=== PATIENT | female | born 1930 | race Caucasian/White ===

== ENCOUNTER → 2016-08-14 | Outpatient (CLI) | payer OTHER ==
[~2016-08-14] VITALS: Ht 167.6 cm; Wt 71.1 kg
[~2016-08-14] MED LIST: ALEVE220 MG PO; ALIGN4 MG; AMITIZA8 MCG PO; BENTYL 10 MG CA10 M1 PO; CARAFATE 1 GM TA1 G1 PO; CELEBREX100 MG/1 C PO; CENTRUM SILVER1 EAC4; CYMBALTA30 MG PO; FLUTICASONE PRO16 GM NS; GABAPENTIN 100100 MG PO; GLUCOSAMINE CH1 EAC2; LEVOTHYROXIN0.075 MG PO; LEVOXYL88 MCG PO; METAMUCIL PAC1 UDPKT; NEURONTIN 300300 M1 PO; PERCOCET PO; PRILOSEC 20 MG20 MG PO; RIZATRIPTAN10 MG PO; TRAMADOL 50 MG50 MG PO; VALTREX 500 MG500 M1 PO; XANAX 0.5 MG0.5 MG PO; ZANAFLEX4 MG PO; [UNRECOGNIZED DRUG - OTHER]
--- NOTE | ~2016-08-14 | HPC ---
[facility] [place] [address] PAIN MANAGEMENT CONSULTATION Name: ARTHUR OSMAN Room #: REG ZBIGNIEW Roland.#: [id number] Admission: 08/14/16 Attend Phys: Mitesh Sims DO Discharge: Date of : 30 Report #: [id number] THIS REPORT FOR: //name// CC: Ivonne Sims The patient is a very pleasant 85-year-old female being treated for lumbar radiculopathy status post decompressive laminectomy with fairly significant pain. She has had reasonable improvement with a left L2-L3 transforaminal epidural injection in April. I repeated that injection 07/03/2016 with little less efficacy. She notes pain remains problematic, but it is more in the posterior aspect of the left leg. She has been taking some Percocet rarely, 5 mg of quarter tablet p.r.n. She has a followup appointment with her primary treating physician in about 2 weeks, but she is out of the Percocet. I have taken the liberty of renewing this prescription. Physical exam is relatively unchanged. An 85-year-old female, BMI is 25.3 kilograms per meter squared. Vital signs stable as noted in the EMR. Rises from chair using armrests. Antalgic gait, positive straight leg raise on the left with decreased left hip flexion, lower extremity extension strength. ASSESSMENT: Symptomatic lumbar radiculopathy, status post lumbar decompressive laminectomy. RECOMMENDATIONS: Left L4-L5 transforaminal epidural injection today. Trying to get a lower approach to cover more of that L4-L5 distribution pain (sciatic type symptoms). We did again review her MRI, which notes fairly significant posterior decompression at L4 and L5. There is fairly significant stenosis at L3-L4 and L2-L3, L3-L4 is down to 0.68 cm and L2-L3 is even narrow at 0.54 cm. PROCEDURE: Left L4-L5 transforaminal epidural injection under fluoroscopy. PROCEDURE: Transforaminal lumbar epidural injection under fluoroscopy. PROCEDURE NOTE: After both written and informed consent was obtained including risk of spinal cord damage, infection, increased pain and paralysis, the patient agreed to proceed. The patient was taken to the fluoroscopy suite, placed in a prone position with appropriate abdominal bolstering. After sterile prep with ChloraPrep and sterile drape, a skin wheal with 1% Xylocaine was raised. A 22 gauge 4-1/2 inch epidural Tuohy needle was inserted. From an oblique approach into the posterior-superior aspect of the left L4-L5 neural foramen with continuous pressure on the glass syringe plunger for loss of resistance. Glass syringe was filled with 2 cc of 0.1 Xylocaine. The glass loss of resistance syringe was removed. A low volume extension tubing was connected, negative aspiration was accomplished for cerebrospinal fluid or blood. 1 mL of Omnipaque was injected which showed spread both within the epidural space and laterally along the nerve root. This was followed with 80 mg of triamcinolone plus [address] [address] PAIN MANAGEMENT CONSULTATION Name: ARTHUR OSMAN Room #: TREE Nicolas#: [id number] Admission: 08/14/16 Attend Phys: Mitesh Sims DO Discharge: Date of : 30 Report #: [id number] of 1.5% preservative-free Xylocaine. Needle was partially withdrawn, 0.5 mL of Xylocaine was injected to clear the needle and the needle was removed. The area was cleansed, band-aid was applied. The patient was allowed to ambulate to the recovery room, discharged in good and stable condition. Level is L4-L5 on the left. Followup is as needed. <ELECTRONICALLY SIGNED> By: Mitesh Sims DO 08/18/16 1228 1553 0158 Mitesh Sims DO /nt
[2016-08-14 12:56] VITALS: BP 114/73
== END | disposition home or self-care (01) ==
LOC: PAIN 07-28 06:45
DX: M54.16 Radiculopathy, lumbar region (principal); Z98.890 Other specified postprocedural states

== ENCOUNTER 2016-12-29 22:18 | Emergency (ER) | payer OTHER ==
[~2016-12-29] VITALS: Ht 167.6 cm; Wt 71.2 kg
== END 2016-12-30 01:06 | disposition home or self-care (01) ==
LOC: ER 22:18
DX: S90.512A Abrasion, left ankle, initial encounter (principal); S50.811A Abrasion of right forearm, initial encounter; Z96.651 Presence of right artificial knee joint; Z85.828 Personal history of other malignant neoplasm of skin; Z88.8 Allergy status to other drugs, medicaments and biological substances; Z88.0 Allergy status to penicillin; Z88.5 Allergy status to narcotic agent; Z88.6 Allergy status to analgesic agent; W18.12XA Fall from or off toilet with subsequent striking against object, initial encounter; Y93.89 Activity, other specified; Y92.091 Bathroom in other non-institutional residence as the place of occurrence of the external cause; Y99.8 Other external cause status

== ENCOUNTER 2016-12-31 11:08 | Emergency (ER) | payer OTHER ==
[~2016-12-31] VITALS: Ht 167.6 cm; Wt 71.2 kg
[2016-12-31 12:50] LABS: ABSOLUTE NEUTROPHILS 3.8 thou/uL (1.4-8.2); BASOPHILS 1.1 % (0.0-2.0); EOSINOPHILS 0.9 % (0.0-3.0); HEMATOCRIT 40.5 % (37.0-47.0); HEMOGLOBIN 13.9 gm/dL (12.0-15.0); LYMPHOCYTES 32.6 % (24.0-44.0); MCH 31.6 pg (26.0-34.0); MCHC 34.4 g/dL (28.0-37.0); MONOCYTES 11.1 % (1.0-8.0); PLATELET COUNT 212 thou/uL (150-400); POLYS 54.3 % (36.0-66.0); RDW 12.9 % (10.5-14.5); WBC 7.1 thou/uL (4.0-11.0)
[2016-12-31 12:51] LABS: MANUAL DIFF NO
[2016-12-31 13:01] LABS: URINE BILIRUBIN NEGATIVE (Negative); URINE BLOOD NEGATIVE (Negative); URINE COLOR YELLOW; URINE GLUCOSE-RANDOM* NEGATIVE (Negative); URINE KETONES NEGATIVE (Negative); URINE LEUKOCYTES-REFLEX NEGATIVE (Negative); URINE PROTEIN (DIPSTICK) NEGATIVE (Negative); URINE SPECIFIC GRAVITY <= 1.005 (1.003-1.035); URINE UROBILINOGEN 0.2 E.U./dl (0.2-1.0)
[2016-12-31 13:03] LABS: CALCIUM 10.2 mg/dL (8.5-10.1); CREATININE 1.3 mg/dL (0.6-1.0); POTASSIUM 4.2 mmol/L (3.5-5.1)
== END 2016-12-31 15:27 | disposition home or self-care (01) ==
LOC: ER 11:08
PROVIDERS: Nurse Practitioner Family
DX: R11.2 Nausea with vomiting, unspecified (principal); Z98.890 Other specified postprocedural states; Z90.49 Acquired absence of other specified parts of digestive tract; Z96.651 Presence of right artificial knee joint; Z91.048 Other nonmedicinal substance allergy status; Z88.0 Allergy status to penicillin; Z88.5 Allergy status to narcotic agent; Z88.6 Allergy status to analgesic agent; Z88.8 Allergy status to other drugs, medicaments and biological substances

== ENCOUNTER 2017-02-17 14:43 | Emergency (ER) | payer OTHER ==
[~2017-02-17] VITALS: Ht 167.6 cm; Wt 71.2 kg
[2017-02-17 15:09] LABS: ABSOLUTE NEUTROPHILS 4.9 thou/uL (1.4-8.2); BASOPHILS 0.7 % (0.0-2.0); EOSINOPHILS 0.6 % (0.0-3.0); HEMATOCRIT 40.7 % (37.0-47.0); HEMOGLOBIN 13.9 gm/dL (12.0-15.0); LYMPHOCYTES 37.3 % (24.0-44.0); MCH 31.8 pg (26.0-34.0); MCHC 34.3 g/dL (28.0-37.0); MCV 92.8 fL (80.0-100.0); MONOCYTES 10.2 % (1.0-8.0); PLATELET COUNT 203 thou/uL (150-400); POLYS 51.2 % (36.0-66.0); RBC 4.39 mil/uL (4.20-5.00); WBC 9.6 thou/uL (4.0-11.0)
[2017-02-17 15:12] LABS: MANUAL DIFF NO
[2017-02-17 15:18] LABS: CALCIUM 9.4 mg/dL (8.5-10.1); CREATININE 1.1 mg/dL (0.6-1.0); POTASSIUM 3.4 mmol/L (3.5-5.1)
[2017-02-17 15:24] LABS: ALBUMIN 3.7 g/dL (3.4-5.0); TOTAL BILIRUBIN 0.6 mg/dL (<0.1-1.0)
[2017-02-17 16:10] LABS: URINE BILIRUBIN NEGATIVE (Negative); URINE BLOOD NEGATIVE (Negative); URINE COLOR YELLOW; URINE GLUCOSE-RANDOM* NEGATIVE (Negative); URINE KETONES NEGATIVE (Negative); URINE NITRITE NEGATIVE (Negative); URINE PROTEIN (DIPSTICK) NEGATIVE (Negative); URINE SPECIFIC GRAVITY <= 1.005 (1.003-1.035); URINE UROBILINOGEN 0.2 E.U./dl (0.2-1.0)
[2017-02-17 16:26] LABS: BACTERIA 1-9 Few /HPF (None Seen); CASTS None Seen /LPF (None Seen); CRYSTALS None Seen /LPF (None Seen); SQUAMOUS 0-3 Few /LPF (0-3); URINE RBC 0-2 Rare /HPF (0-2); WBC CLUMPS Few (None Seen)
[2017-02-17] MEDS ORDERED: BACTRIM DS TAB1 EACH PO (16:48)
== END 2017-02-17 17:15 | disposition home or self-care (01) ==
LOC: ER 14:43
PROVIDERS: Physician Assistant
DX: N39.0 Urinary tract infection, site not specified (principal); R41.82 Altered mental status, unspecified; Z98.890 Other specified postprocedural states; Z88.5 Allergy status to narcotic agent; Z91.018 Allergy to other foods; Z88.0 Allergy status to penicillin; Z88.8 Allergy status to other drugs, medicaments and biological substances; Z91.09 Other allergy status, other than to drugs and biological substances

== ENCOUNTER → 2017-03-20 | Outpatient (CLI) | payer OTHER ==
[~2017-03-20] VITALS: Ht 167.6 cm; Wt 72.1 kg
[~2017-03-20] MED LIST changes: +BACTRIM DS TAB1 EACH PO; +CYMBALTA60 MG PO
--- NOTE | ~2017-03-20 | HPC ---
[facility] [place] [address] PAIN MANAGEMENT CONSULTATION Name: ARTHUR OSMAN Room #: REG ZBIGNIEW Nicolas#: [id number] Admission: 03/20/17 Attend Phys: Mitesh Sims DO Discharge: Date of : 30 Report #: [id number] THIS REPORT FOR: //name// CC: DIANA Sims HISTORY OF PRESENT ILLNESS: The patient is an 86-year-old female, prior seen in the pain clinic on 08/25/2016. She is status post lumbar decompressive laminectomy and is having neuropathic pain with left lower extremity pain. The patient had had 3 lumbar epidural injections, 04/21/2016, 07/03/2016, 08/14/2016. In August, she was having some ongoing symptoms, albeit had had subjective improvement from prior injections, noting 50% at least ongoing. She was, however, still having some stocking paresthesia in the left leg with burning dysesthesia. She returns to the pain clinic today, I had ordered an EMG of the left lower extremity, ultimately this was accomplished on 09/26/2016. I reviewed the findings with the patient today. Neorologist notes severe left perineural neuropathy possibly mid leg, bilateral radicular abnormalities consistent with spinal stenosis. The patient notes subsequent to her L4-L5 laminectomy now some 18 years ago (1998), she has had ongoing low back, left buttock, leg pain with burning in her left ankle. She rates her pain up to an 8 on VAS presently. Does take some tramadol p.r.n. PHYSICAL EXAMINATION: Shows an 86-year-old female, BMI is 25.7 kilograms per meter squared. Vital signs are stable as noted in the EMR. Rises from chair using armrest, nominally antalgic gait, but grossly positive straight leg raise at 30 degrees on the left, slight decreased left lower extremity extension, strength and plantar flexion. We did review MRI from 04/11/2017 approximately 1 year ago, again does note a grade 1 anterolisthesis of L4 on L5 as well as L3-L4. Prior laminectomy changes at L4-L5 and L5-S1. Extensive spondylosis with subluxation, spinal stenosis noted at multiple levels, L1-L2 and L2-L3 are significant. Canal narrowing at L3-L4 with prominent central right disk at L3-L4, again has contralateral to primary radicular symptoms. ASSESSMENT: Symptomatic lumbar radiculopathy by clinical exam, left L4 pattern. RECOMMENDATIONS: Discussion with the patient today about therapeutic option. After reviewing diagnostic studies including MRI and more recent EMG, we have elected to proceed with left L4-L5 transforaminal epidural injection today, requiring opiate analgesic I did take the liberty of renewing tramadol 50 mg 1 tablet 2-3 times a day, limit 60 tablets with [address] [address] PAIN MANAGEMENT CONSULTATION Name: ARTHUR OSMANYCE Room #: REG [facility]..#: [id number] Admission: 03/20/17 Attend Phys: Mitesh Sims DO Discharge: Date of : 30 Report #: [id number] Follow simply on an as needed basis. Continue exercise, range of motion and strength treating for left lower extremity. ASSESSMENT: 1. Symptomatic lumbar radiculopathy, neuropathic pain component, status post lumbar decompressive laminectomy requiring complex medication management. Medications as noted above. 2. Left L4-L5 transforaminal epidural injection under fluoroscopy. PROCEDURE: Transforaminal lumbar epidural injection under fluoroscopy. PROCEDURE NOTE: After both written and informed consent was obtained including risk of spinal cord damage, infection, increased pain and paralysis, the patient agreed to proceed. The patient was taken to the fluoroscopy suite, placed in a prone position with appropriate abdominal bolstering. After sterile prep with ChloraPrep and sterile drape, a skin wheal with 1% Xylocaine was raised. A 22 gauge 4-1/2 inch epidural Tuohy needle was inserted. From an oblique approach into the posterior-superior aspect of the left L4-L5 neural foramen with continuous pressure on the glass syringe plunger for loss of resistance. Glass syringe was filled with 2 cc of 0.1 Xylocaine. The glass loss of resistance syringe was removed. A low volume extension tubing was connected, negative aspiration was accomplished for cerebrospinal fluid or blood. 1 mL of Omnipaque was injected which showed spread both within the epidural space and laterally along the nerve root. This was followed with 80 mg of triamcinolone plus 1 mL of 1.5% preservative-free Xylocaine. Needle was partially withdrawn, 0.5 mL of Xylocaine was injected to clear the needle and the needle was removed. The area was cleansed, band-aid was applied. The patient was allowed to ambulate to the recovery room, discharged in good and stable condition. <ELECTRONICALLY SIGNED> By: Mitesh Sims DO 03/26/17 0847 1211 193 Mitesh Sims DO /nt
[2017-03-20 10:23] VITALS: BP 130/75
== END | disposition home or self-care (01) ==
LOC: PAIN 09:00
DX: M54.16 Radiculopathy, lumbar region (principal); G62.9 Polyneuropathy, unspecified

== ENCOUNTER → 2017-04-17 | Outpatient (CLI) | payer OTHER ==
[~2017-04-17] VITALS: Ht 167.6 cm; Wt 70.3 kg
--- NOTE | ~2017-04-17 | HPC ---
[facility] [place] [address] PAIN MANAGEMENT CONSULTATION Name: ARTHUR OSMAN Room #: REG [facility] [place].#: [id number] Admission: 04/17/17 Attend Phys: Mitesh Sims DO Discharge: Date of : 30 Report #: [id number] THIS REPORT FOR: //name// CC: DIANA Sims HISTORY OF PRESENT ILLNESS: The patient is a very pleasant 86-year-old female, we have been treating for some time for chronic back pain status post decompressive laminectomy and neuropathic pain, primarily involving left lower extremity. She has done well with occasional epidural injections, had 3 injections, 04/21/2016, 07/03/2016 and 08/14/2016. Last visit, 03/20/2017, we proceeded with a left L4-L5 transforaminal epidural injection. She returns to pain clinic today noting that the radicular pain is significantly improved; she does, however, have ongoing pain in the left hip, which is a little bit different. She notes the pain is in the lateral aspect of the hip, exacerbated with standing and weightbearing. She rates it as 6 on a VAS. PHYSICAL EXAMINATION: Shows an 86-year-old female, BMI is 25 kilograms per meter squared, blood pressure is modestly elevated 137/97, pulse wnl, respirations are 12. She is alert and oriented to person, place and time, judged to be a reasonable historian. Rises from chair using armrest. Modestly antalgic gait favoring that left leg. Passive rotation of the left hip does not exacerbate pain. Active resistance to abduction does exacerbate pain at the trochanteric bursa; point tenderness over this area also confirms pain. Does not have significant pain over the SI joints and BRIAN test is equivocal. Lower extremity strength, however, appears preserved. Straight leg raise is negative. ASSESSMENT: 1. Symptomatic lumbar radiculopathy status post decompressive laminectomy and neuropathic pain, relatively stable after epidural injection at last visit. 2. New diagnosis of left trochanteric bursitis, possible component of left hip degenerative joint disease. RECOMMENDATION: 1. Continue tramadol p.r.n., does not require prescription for same. 2. Left trochanteric bursa injection today, follow up in 1 week for consideration for left hip joint injection under fluoroscopy if indicated. PROCEDURE: Left trochanteric bursa injection. PROCEDURE NOTE: After written informed consent was obtained, the patient was placed in the right lateral decubitus position. Skin overlying the left trochanteric bursa was cleansed with alcohol. Skin wheal with Xylocaine was raised. A 22-gauge stylet needle was placed to contact the superior and lateral aspect of the left femur over the trochanteric bursa. Needle was withdrawn approximately 1-2 mm. Negative aspiration was accomplished, 40 mg triamcinolone plus 2 mL of 0.5% preservative-free bupivacaine was injected into and around the [address] [address] PAIN MANAGEMENT CONSULTATION Name: ARTHUR OSMAN Room #: REG Trev Nicolas#: [id number] Admission: 04/17/17 Attend Phys: Mitesh Sims DO Discharge: Date of : 30 Report #: [id number] trochanteric bursa. Needle was removed. The area was cleansed, Band-Aids applied. The patient monitored for an appropriate period of time, discharged in good and stable condition. <ELECTRONICALLY SIGNED> By: Mitesh Sims DO 04/20/17 1014 1543 1245 Mitesh Sims DO /nt
[2017-04-17 10:49] VITALS: BP 137/97
== END | disposition home or self-care (01) ==
LOC: PAIN 07:17
DX: M70.62 Trochanteric bursitis, left hip (principal); M54.16 Radiculopathy, lumbar region; G89.29 Other chronic pain; F41.8 Other specified anxiety disorders; G43.909 Migraine, unspecified, not intractable, without status migrainosus; Z88.0 Allergy status to penicillin; Z98.890 Other specified postprocedural states; Z88.6 Allergy status to analgesic agent; Z91.040 Latex allergy status; Z79.899 Other long term (current) drug therapy

== ENCOUNTER → 2017-06-22 | Outpatient (CLI) | payer OTHER ==
[~2017-06-22] VITALS: Ht 167.6 cm; Wt 71.2 kg
[~2017-06-22] MED LIST changes: +AMITRIPTYLINE H25 M2 PO
--- NOTE | ~2017-06-22 | HPC ---
[facility] [address] [place] [address] PAIN MANAGEMENT CONSULTATION Name: ARTHUR OSMANYCE Room #: REG ZBIGNIEW Nicolas#: [id number] Admission: 06/22/17 Attend Phys: Mitesh Sims DO Discharge: Date of : 30 Report #: [id number] THIS REPORT FOR: //name// CC: DIANA Sims The patient is an 86-year-old female, long known to the pain clinic, being treated for lumbar radiculopathy status post a fairly extensive decompressive laminectomy L4 and L5; axial back pain, neuropathic pain in the left lower extremity requiring high risk complex medication management, comorbidity includes a component of left hip DJD and SI mediated pain. Last visit 04/17/2017, I did a left trochanteric bursa injection with only nominal improvement of pain. She actually has more radicular pain at this point down the lateral aspect of that left leg down to the foot. Pain is exacerbated with standing, walking and bending. PHYSICAL EXAMINATION: Shows a pleasant 86-year-old female. She does have a fair bit of ecchymosis in the lower extremities, which the patient notes seems to be getting worse. She does not take any blood thinners, she really does not take any steroids. Suggest she follow up with oncologist if needed for further evaluation of bilateral lower extremity ecchymosis. Otherwise, vital signs are stable, subjective pain score is 9 on a VAS. Rises from chair using armrest. Antalgic gait favoring the left leg. Positive straight leg raise on the left. Again, ecchymosis noted bilaterally in lower extremities. We reviewed the EMG from 09/26/2016, noting severe left peroneal neuropathy, bilateral radicular abnormalities consistent with spinal stenosis. No evidence of peripheral neuropathy. ASSESSMENT: Symptomatic lumbar radiculopathy status decompressive laminectomy. RECOMMENDATIONS: 1. Left L4-L5 transforaminal epidural injection today. 2. Follow up with DELVIN Cedeño, care of Dr. García's office for consideration for referral to hematology/oncology regarding evaluation for ongoing ecchymosis of the lower extremity without obvious etiology. PROCEDURE: Left L4-L5 transforaminal epidural injection under fluoroscopy. PROCEDURE NOTE: After both written and informed consent was obtained including risk of spinal cord damage, infection, increased pain and paralysis, the patient agreed to proceed. The patient was taken to the fluoroscopy suite, placed in a prone position with appropriate abdominal bolstering. After sterile prep with ChloraPrep and sterile drape, a skin wheal with 1% Xylocaine was raised. A 22 gauge 4-1/2 inch epidural Tuohy needle was inserted[place] [address] PAIN MANAGEMENT CONSULTATION Name: ARTHUR OSMAN Room #: REG ZBIGNIEW Nicolas#: [id number] Admission: 06/22/17 Attend Phys: Mitesh Sims DO Discharge: Date of : 30 Report #: [id number] into the posterior-superior aspect of the left L4-L5 neural foramen with continuous pressure on the glass syringe plunger for loss of resistance. Glass syringe was filled with 2 cc of 0.1 Xylocaine. The glass loss of resistance syringe was removed. A low volume extension tubing was connected, negative aspiration was accomplished for cerebrospinal fluid or blood. 1 mL of Omnipaque was injected which showed spread both within the epidural space and laterally along the nerve root. This was followed with 80 mg of triamcinolone plus 1 mL of 1.5% preservative-free Xylocaine. Needle was partially withdrawn, 0.5 mL of Xylocaine was injected to clear the needle and the needle was removed. The area was cleansed, band-aid was applied. The patient was allowed to ambulate to the recovery room, discharged in good and stable condition. <ELECTRONICALLY SIGNED> By: Mitesh Sims DO 06/24/17 0834 1214 1550 Mitesh Sims DO /nt
[2017-06-22 10:48] VITALS: BP 152/62
== END | disposition home or self-care (01) ==
LOC: PAIN 04-24 07:18
DX: M54.16 Radiculopathy, lumbar region (principal); G89.29 Other chronic pain; M16.12 Unilateral primary osteoarthritis, left hip; M53.3 Sacrococcygeal disorders, not elsewhere classified; Z79.891 Long term (current) use of opiate analgesic; Z79.899 Other long term (current) drug therapy; Z88.0 Allergy status to penicillin; Z88.6 Allergy status to analgesic agent; Z88.8 Allergy status to other drugs, medicaments and biological substances; Z87.440 Personal history of urinary (tract) infections; Z98.890 Other specified postprocedural states

== ENCOUNTER 2017-07-22 14:17 | Inpatient (IN) | payer OTHER ==
[~2017-07-22] VITALS: Ht 167.6 cm; Wt 68.9 kg
--- NOTE | ~2017-07-22 | EKG ---
[place] [address] [facility] [place] [address] ELECTROCARDIOGRAM REPORT Name: DAWSONARTHUR BRANDI Room #: [facility] [id number] Admission: 07/22/17 Attend Phys: Discharge: Date of : 30 Report #: [id number] THIS REPORT FOR: //name// [facility] ED Test Date: 2017-07-22 Test Time: 16:18:54 Pat Name: ARTHUR OSMAN Department: Room: Gender: F Automotive Vehicle Inspector: YADY : 1930 Requested By: Papito Avelar Order Number: [id number] MD: George Rob Measurements Intervals [place] Rate: 84 P: 29 WI: 179 QRS: -42 QRSD: 100 T: 50 QT: 381 QTc: 451 Interpretive Statements Sinus rhythm LAD, consider LAFB or inferior infarct Left ventricular hypertrophy Anterior infarct, old Compared to ECG 05/06/2016 23:05:13 No significant changes Electronically Signed On 07-22-2017 16:21:57 [employer] by George Rob [email or web address] <ELECTRONICALLY SIGNED> By: George Rob MD 07/22/17 1621 1618 1618 George Rob MD /BENJI
[2017-07-22 14:19] VITALS: BP 126/70
[2017-07-22] MEDS ORDERED: LEVOXYL75 MCG PO (15:43)
[2017-07-22] MEDS ORDERED: GABAPENTIN 100100 MG PO (15:45)
[2017-07-22 16:12] LABS: HEMOGLOBIN 13.5 gm/dL (12.0-15.0); MCH 33.7 pg (26.0-34.0); MCHC 35.5 g/dL (28.0-37.0); RDW 12.6 % (10.5-14.5); WBC 12.9 thou/uL (4.0-11.0)
[2017-07-22 17:06] LABS: BUN 16 mg/dL (7-18); CALCIUM 9.3 mg/dL (8.5-10.1); CO2 28 mmol/L (21-32); CREATININE 1.1 mg/dL (0.6-1.0); GLUCOSE 123 mg/dL (74-106); MAGNESIUM 1.9 mg/dL (1.8-2.4); SGOT 27 U/L (15-37); SGPT 33 U/L (30-65); TOTAL BILIRUBIN 0.5 mg/dL (<0.1-1.0); TROPONIN-I < 0.04 ng/mL (<0.06)
[2017-07-22 17:10] LABS: ANION GAP 9 mmol/L (7-16); CHLORIDE 95 mmol/L (98-107); POTASSIUM 3.2 mmol/L (3.5-5.1); SODIUM 132 mmol/L (136-145)
[2017-07-22 18:39] LABS: URINE BILIRUBIN NEGATIVE (Negative); URINE BLOOD TRACE (Negative); URINE CLARITY CLEAR; URINE COLOR YELLOW; URINE GLUCOSE-RANDOM* NEGATIVE (Negative); URINE KETONES 2+ (Negative); URINE PROTEIN (DIPSTICK) 1+ (Negative); URINE SPECIFIC GRAVITY 1.025 (1.005-1.035); URINE UROBILINOGEN 0.2 E.U./dl (0.2-1.0)
[2017-07-22 18:48] LABS: URINE LEUKOCYTES-REFLEX 2+ (Negative); URINE NITRITE-REFLEX POSITIVE (Negative)
[2017-07-22 18:50] LABS: SQUAMOUS 0-3 Few /LPF (0-3)
[2017-07-22 18:51] LABS: BACTERIA-REFLEX 1-9 Few /HPF (None Seen); CRYSTALS None Seen /LPF (None Seen); URINE RBC None Seen /HPF (0-2); URINE WBC-REFLEX >25 Many /HPF (0-5)
[2017-07-22 21:12] VITALS: BP 182/74
[2017-07-23 07:45] LABS: HEMATOCRIT 36.8 % (37.0-47.0); HEMOGLOBIN 12.7 gm/dL (12.0-15.0); MCH 32.5 pg (26.0-34.0); MCHC 34.6 g/dL (28.0-37.0); MCV 93.9 fL (80.0-100.0); RBC 3.92 mil/uL (4.20-5.00); RDW 12.6 % (10.5-14.5); WBC 12.3 thou/uL (4.0-11.0)
[2017-07-23 07:53] LABS: CREATININE 0.9 mg/dL (0.6-1.0); POTASSIUM 3.9 mmol/L (3.5-5.1)
[2017-07-23 08:00] VITALS: BP 139/67
[2017-07-23 19:52] VITALS: BP 98/57
[2017-07-24 03:34] LABS: HEMATOCRIT 34.8 % (37.0-47.0); MCH 32.9 pg (26.0-34.0); MCHC 34.3 g/dL (28.0-37.0); MCV 95.8 fL (80.0-100.0); RBC 3.64 mil/uL (4.20-5.00); RDW 12.9 % (10.5-14.5); WBC 11.1 thou/uL (4.0-11.0)
[2017-07-24 04:14] LABS: CALCIUM 8.8 mg/dL (8.5-10.1); MAGNESIUM 1.8 mg/dL (1.8-2.4); POTASSIUM 3.6 mmol/L (3.5-5.1)
[2017-07-24 06:01] VITALS: BP 138/68
[2017-07-24 07:25] VITALS: BP 144/75
[2017-07-24 16:00] VITALS: BP 128/73
[2017-07-24 19:59] VITALS: BP 128/83
[2017-07-25 04:09] VITALS: BP 134/71
[2017-07-25 07:30] VITALS: BP 143/74
[2017-07-25 15:40] VITALS: BP 123/69
[2017-07-25 19:29] VITALS: BP 132/65
[2017-07-26 03:45] VITALS: BP 144/72
[2017-07-26 04:29] VITALS: BP 162/72
[2017-07-26 07:35] VITALS: BP 146/72
[2017-07-26 15:20] VITALS: BP 116/60
[2017-07-26 19:47] VITALS: BP 129/63
[2017-07-27 04:30] VITALS: BP 151/87
[2017-07-27 05:18] LABS: ABSOLUTE NEUTROPHILS 6.3 thou/uL (1.4-8.2); BASOPHILS 0.3 % (0.0-2.0); HEMATOCRIT 33.3 % (37.0-47.0); HEMOGLOBIN 11.4 gm/dL (12.0-15.0); LYMPHOCYTES 20.2 % (24.0-44.0); MCH 32.6 pg (26.0-34.0); MCHC 34.3 g/dL (28.0-37.0); MCV 95.2 fL (80.0-100.0); MONOCYTES 11.6 % (1.0-8.0); PLATELET COUNT 269 thou/uL (150-400); POLYS 66.9 % (36.0-66.0); RBC 3.49 mil/uL (4.20-5.00); RDW 12.8 % (10.5-14.5); WBC 9.5 thou/uL (4.0-11.0)
[2017-07-27 05:26] LABS: CALCIUM 8.6 mg/dL (8.5-10.1); CREATININE 0.8 mg/dL (0.6-1.0); POTASSIUM 3.3 mmol/L (3.5-5.1)
[2017-07-27 08:54] VITALS: BP 140/85
[2017-07-27 12:21] VITALS: BP 140/85
[2017-07-27] MEDS ORDERED: CIPRO500 MG PO (13:18)
[2017-11-10] MEDS ORDERED: HYDROCODONE-AP1 EAC6 PO (09:14)
[2017-11-10] MEDS ORDERED: XARELTO10 MG PO (09:14)
[2018-01-08] MEDS ORDERED: TYLENOL EXTRA500 MG PO (10:36)
[2018-01-08] MEDS ORDERED: GABAPENTIN 100100 MG PO (10:49)
[2018-04-07] MEDS ORDERED: NEURONTIN100 MG PO (10:58)
== END 2017-07-27 14:15 | disposition home health service (06) | DRG 871 ==
LOC: ER 14:17 → EROBS 19:14 → 4S 19:14 → EROBS 07-23 11:10 → 4S 07-23 14:49 → ENTRNSPT 07-27 13:51 → EDTRNSPTSTS 07-27 13:54 → 4S 07-27 14:15
PROVIDERS: Emergency Medicine; Family Medicine; Internal Medicine; Nurse Practitioner Family
DX: A41.9 Sepsis, unspecified organism (principal); G93.40 Encephalopathy, unspecified; N39.0 Urinary tract infection, site not specified; H60.92 Unspecified otitis externa, left ear; I95.1 Orthostatic hypotension; B96.5 Pseudomonas (aeruginosa) (mallei) (pseudomallei) as the cause of diseases classified elsewhere; E03.9 Hypothyroidism, unspecified; M25.512 Pain in left shoulder; F41.9 Anxiety disorder, unspecified; M79.7 Fibromyalgia; F32.9 Major depressive disorder, single episode, unspecified; G62.9 Polyneuropathy, unspecified; Z87.81 Personal history of (healed) traumatic fracture; Z79.899 Other long term (current) drug therapy; Z88.6 Allergy status to analgesic agent; Z88.5 Allergy status to narcotic agent; Z88.0 Allergy status to penicillin; Z88.2 Allergy status to sulfonamides; Z88.8 Allergy status to other drugs, medicaments and biological substances
CPT/HCPCS: 10100

== ENCOUNTER 2017-09-11 13:26 | Emergency (ER) | payer OTHER ==
[~2017-09-11] VITALS: Ht 167.6 cm; Wt 68.0 kg
[~2017-09-11 13:26] MED LIST changes: +CIPRO500 MG PO; +LEVOXYL75 MCG PO
[2017-09-11 13:28] VITALS: BP 186/66
[2017-09-11 16:21] LABS: ICTOTEST (BILI CONFIRMATORY) Negative (Negative); URINE BILIRUBIN NEGATIVE (Negative); URINE BLOOD NEGATIVE (Negative); URINE CLARITY CLEAR; URINE COLOR YELLOW; URINE GLUCOSE-RANDOM* NEGATIVE (Negative); URINE KETONES 2+ (Negative); URINE LEUKOCYTES-REFLEX NEGATIVE (Negative); URINE NITRITE-REFLEX NEGATIVE (Negative); URINE PROTEIN (DIPSTICK) TRACE (Negative); URINE SPECIFIC GRAVITY 1.015 (1.005-1.035); URINE UROBILINOGEN 0.2 E.U./dl (0.2-1.0)
[2017-09-11 16:25] LABS: ABSOLUTE NEUTROPHILS 5.4 thou/uL (1.4-8.2); BASOPHILS 0.3 % (0.0-2.0); EOSINOPHILS 0.1 % (0.0-3.0); HEMATOCRIT 41.9 % (37.0-47.0); HEMOGLOBIN 14.4 gm/dL (12.0-15.0); LYMPHOCYTES 25.3 % (24.0-44.0); MCHC 34.4 g/dL (28.0-37.0); MCV 93.1 fL (80.0-100.0); MONOCYTES 8.2 % (1.0-8.0); PLATELET COUNT 248 thou/uL (150-400); POLYS 66.1 % (36.0-66.0); RBC 4.51 mil/uL (4.20-5.00); RDW 13.7 % (10.5-14.5); WBC 8.2 thou/uL (4.0-11.0)
[2017-09-11 16:33] LABS: CALCIUM 10.1 mg/dL (8.5-10.1); POTASSIUM 3.5 mmol/L (3.5-5.1)
[2017-11-10] MEDS ORDERED: XARELTO10 MG PO (09:14)
[2017-11-10] MEDS ORDERED: HYDROCODONE-AP1 EAC6 PO (09:14)
[2018-01-08] MEDS ORDERED: TYLENOL EXTRA500 MG PO (10:36)
[2018-01-08] MEDS ORDERED: GABAPENTIN 100100 MG PO (10:49)
[2018-04-07] MEDS ORDERED: NEURONTIN100 MG PO (10:58)
== END 2017-09-11 17:15 | disposition home or self-care (01) ==
LOC: ER 13:26
PROVIDERS: Physician Assistant
DX: M25.551 Pain in right hip (principal); M25.511 Pain in right shoulder; R07.81 Pleurodynia; E03.9 Hypothyroidism, unspecified; F41.9 Anxiety disorder, unspecified; F32.9 Major depressive disorder, single episode, unspecified; G62.9 Polyneuropathy, unspecified; M79.7 Fibromyalgia; Z88.6 Allergy status to analgesic agent; Z88.5 Allergy status to narcotic agent; Z88.0 Allergy status to penicillin; Z88.8 Allergy status to other drugs, medicaments and biological substances; W18.39XA Other fall on same level, initial encounter; Y93.E1 Activity, personal bathing and showering; Y92.89 Other specified places as the place of occurrence of the external cause; Y99.8 Other external cause status

== ENCOUNTER 2017-09-15 13:52 | Emergency (ER) | payer OTHER ==
[~2017-09-15] VITALS: Ht 165.1 cm; Wt 79.4 kg
--- NOTE | ~2017-09-15 | EKG ---
[place] [address] [facility] [place] [address] ELECTROCARDIOGRAM REPORT Name: ARTHUR OSMAN Room #: DEP Fidencio#: [id number] Admission: 09/15/17 Attend Phys: Discharge: 09/15/17 Date of : 30 Report #: [id number] THIS REPORT FOR: //name// [facility] ED Test Date: 2017-09-15 Test Time: 15:14:58 Pat Name: ARTHUR OSMAN Department: Room: Gender: F Doctor Chiropractic: MZOOK : 1930 Requested By: Ghassan Parrish Order Number: [id number] MD: George Rob Measurements Intervals [place] Rate: 65 P: 68 AR: 184 QRS: -40 QRSD: 100 T: 27 QT: 469 QTc: 488 Interpretive Statements Sinus rhythm Left ventricular hypertrophy Anterior infarct, old Compared to ECG 07/22/2017 16:18:54 No significant changes Electronically Signed On 09-15-2017 19:26:43 [employer] by George Rob [email or web address] <ELECTRONICALLY SIGNED> By: George Rob MD 09/15/17 1926 D: [id number] 13 George Rob MD /BENJI
[2017-09-15 14:25] LABS: URINE BILIRUBIN NEGATIVE (Negative); URINE BLOOD NEGATIVE (Negative); URINE CLARITY CLEAR; URINE COLOR YELLOW; URINE GLUCOSE-RANDOM* NEGATIVE (Negative); URINE KETONES NEGATIVE (Negative); URINE LEUKOCYTES-REFLEX NEGATIVE (Negative); URINE NITRITE-REFLEX NEGATIVE (Negative); URINE PROTEIN (DIPSTICK) NEGATIVE (Negative); URINE SPECIFIC GRAVITY 1.015 (1.005-1.035); URINE UROBILINOGEN 0.2 E.U./dl (0.2-1.0)
[2017-09-15 15:03] LABS: ABSOLUTE NEUTROPHILS 4.8 thou/uL (1.4-8.2); BASOPHILS 0.7 % (0.0-2.0); EOSINOPHILS 0.6 % (0.0-3.0); HEMOGLOBIN 13.3 gm/dL (12.0-15.0); LYMPHOCYTES 30.9 % (24.0-44.0); MCH 31.9 pg (26.0-34.0); MCHC 34.1 g/dL (28.0-37.0); MCV 93.6 fL (80.0-100.0); MONOCYTES 11.1 % (1.0-8.0); PLATELET COUNT 208 thou/uL (150-400); POLYS 56.7 % (36.0-66.0); RBC 4.16 mil/uL (4.20-5.00); RDW 13.3 % (10.5-14.5); WBC 8.5 thou/uL (4.0-11.0)
[2017-09-15 15:15] LABS: CALCIUM 9.6 mg/dL (8.5-10.1); POTASSIUM 3.4 mmol/L (3.5-5.1)
[2017-09-15 16:21] VITALS: BP 182/82
[2017-11-10] MEDS ORDERED: HYDROCODONE-AP1 EAC6 PO (09:14)
[2017-11-10] MEDS ORDERED: XARELTO10 MG PO (09:14)
[2018-01-08] MEDS ORDERED: TYLENOL EXTRA500 MG PO (10:36)
[2018-01-08] MEDS ORDERED: GABAPENTIN 100100 MG PO (10:49)
[2018-04-07] MEDS ORDERED: NEURONTIN100 MG PO (10:58)
== END 2017-09-15 16:24 | disposition home or self-care (01) ==
LOC: ER 13:52
PROVIDERS: Physician Assistant
DX: S81.812A Laceration without foreign body, left lower leg, initial encounter (principal); S00.03XA Contusion of scalp, initial encounter; E03.9 Hypothyroidism, unspecified; F41.9 Anxiety disorder, unspecified; F32.9 Major depressive disorder, single episode, unspecified; M79.7 Fibromyalgia; G62.9 Polyneuropathy, unspecified; Z88.0 Allergy status to penicillin; Z88.1 Allergy status to other antibiotic agents; Z88.5 Allergy status to narcotic agent; Z88.6 Allergy status to analgesic agent; Z88.8 Allergy status to other drugs, medicaments and biological substances; W18.39XA Other fall on same level, initial encounter; Y93.89 Activity, other specified; Y92.89 Other specified places as the place of occurrence of the external cause; Y99.8 Other external cause status

== ENCOUNTER 2017-09-20 16:23 | Emergency (ER) | payer OTHER ==
[~2017-09-20] VITALS: Ht 167.6 cm; Wt 63.5 kg
[2017-09-20 17:31] LABS: URINE BILIRUBIN NEGATIVE (Negative); URINE BLOOD NEGATIVE (Negative); URINE CLARITY CLEAR; URINE COLOR YELLOW; URINE GLUCOSE-RANDOM* NEGATIVE (Negative); URINE KETONES 1+ (Negative); URINE LEUKOCYTES NEGATIVE (Negative); URINE NITRITE NEGATIVE (Negative); URINE PROTEIN (DIPSTICK) NEGATIVE (Negative); URINE SPECIFIC GRAVITY <= 1.005 (1.005-1.035); URINE UROBILINOGEN 0.2 E.U./dl (0.2-1.0)
[2017-09-20 17:33] LABS: ABSOLUTE NEUTROPHILS 5.8 thou/uL (1.4-8.2); BASOPHILS 0.5 % (0.0-2.0); EOSINOPHILS 0.3 % (0.0-3.0); HEMATOCRIT 39.7 % (37.0-47.0); HEMOGLOBIN 13.5 gm/dL (12.0-15.0); LYMPHOCYTES 29.2 % (24.0-44.0); MCH 31.9 pg (26.0-34.0); MCV 93.9 fL (80.0-100.0); PLATELET COUNT 223 thou/uL (150-400); RBC 4.23 mil/uL (4.20-5.00); RDW 13.5 % (10.5-14.5); WBC 9.5 thou/uL (4.0-11.0)
[2017-09-20 17:38] LABS: CALCIUM 9.5 mg/dL (8.5-10.1); CREATININE 1.1 mg/dL (0.6-1.0); POTASSIUM 3.3 mmol/L (3.5-5.1)
[2017-09-20 17:44] LABS: ALBUMIN 3.7 g/dL (3.4-5.0); DIRECT BILIRUBIN 0.2 mg/dL (<0.1-0.3); TOTAL BILIRUBIN 0.8 mg/dL (<0.1-1.0); TOTAL PROTEIN 6.8 g/dL (6.4-8.2)
[2017-09-20 18:46] VITALS: BP 160/81
[2017-11-10] MEDS ORDERED: HYDROCODONE-AP1 EAC6 PO (09:14)
[2017-11-10] MEDS ORDERED: XARELTO10 MG PO (09:14)
[2018-01-08] MEDS ORDERED: TYLENOL EXTRA500 MG PO (10:36)
[2018-01-08] MEDS ORDERED: GABAPENTIN 100100 MG PO (10:49)
[2018-04-07] MEDS ORDERED: NEURONTIN100 MG PO (10:58)
== END 2017-09-20 18:49 | disposition home or self-care (01) ==
LOC: ER 16:23
PROVIDERS: Nurse Practitioner
DX: R10.31 Right lower quadrant pain (principal); E03.9 Hypothyroidism, unspecified; M79.7 Fibromyalgia; Z88.0 Allergy status to penicillin; Z88.5 Allergy status to narcotic agent; Z88.6 Allergy status to analgesic agent

== ENCOUNTER → 2018-01-08 | Outpatient (CLI) | payer OTHER ==
[~2018-01-08] VITALS: Ht 167.6 cm; Wt 67.1 kg
[~2018-01-08] MED LIST changes: +HYDROCODONE-AP1 EAC6 PO; +TYLENOL EXTRA500 MG PO; +XARELTO10 MG PO
--- NOTE | ~2018-01-08 | HPC ---
[facility] [place] [address] PAIN MANAGEMENT CONSULTATION Name: ARTHUR OSMAN Room #: REG ZBIGNIEW Nicolas#: [id number] Admission: 01/08/18 Attend Phys: Mitesh Sims DO Discharge: Date of : 30 Report #: [id number] THIS REPORT FOR: //name// CC: [facility] physician/PCP Mitesh Sims The patient is a delightful 87-year-old female, prior seen last June, did a left L4-L5 transforaminal epidural injection with significant improvement of baseline pain. The patient notes pain has begun to recur without antecedent trauma and overuse. She does note she is getting a little pain in the right side, low back occasionally. She did have right total hip arthroplasty, November 10. She recovered nicely from this. Obciously participated well with PT. Physical exam shows an 87-year-old female, BMI is 23.9 kilograms per meter squared. Vital signs stable as noted in the EMR. Rises from chair using armrest, modestly antalgic gait, pain in the right hip. Positive straight leg raise on the left, slight decreased left hip flexion strength. ASSESSMENT: Symptomatic lumbar radiculopathy status post decompressive laminectomy. RECOMMENDATIONS: We will start the patient back on gabapentin 100 mg at bedtime for 7 days with a target dose of 200 mg at bedtime. This will help with some of the neuropathic pain, hopefully on the right side as well. We will repeat left L4-L5 transforaminal epidural injection today. Follow up in 2 weeks for reevaluation. Consideration for right L4-L5 transforaminal epidural injection if indicated clinically. Hopefully, left L4-L5 transforaminal epidural injection today. We will mitigate symptoms and continue gabapentin low dose and follow up simply as needed. ASSESSMENT: Symptomatic lumbar radiculopathy status post decompressive laminectomy. PROCEDURE: Transforaminal lumbar epidural injection under fluoroscopy. PROCEDURE NOTE: After both written and informed consent was obtained including risk of spinal cord damage, infection, increased pain and paralysis, the patient agreed to proceed. The patient was taken to the fluoroscopy suite, placed in a prone position with appropriate abdominal bolstering. After sterile prep with ChloraPrep and sterile drape, a skin wheal with 1% Xylocaine was raised. A 22 gauge 4-1/2 inch epidural Tuohy needle was inserted. From an oblique approach into the posterior-superior aspect of the left L4-L5 neural foramen with continuous pressure on the glass syringe plunger for loss of resistance. Glass syringe was filled with 2 cc of 0.1 Xylocaine. The glass loss of resistance syringe was removed. A low volume extension tubing was connected, negative [facility] [address] [place] [address] PAIN MANAGEMENT CONSULTATION Name: DAWSONARTHUR Room #: REG ZBIGNIEW Nicolas#: [id number] Admission: 01/08/18 Attend Phys: Mitesh Sims DO Discharge: Date of : 30 Report #: [id number] aspiration was accomplished for cerebrospinal fluid or blood. 1 mL of Omnipaque was injected which showed spread both within the epidural space and laterally along the nerve root. This was followed with 80 mg of triamcinolone plus 1 mL of 1.5% preservative-free Xylocaine. Needle was partially withdrawn, 0.5 mL of Xylocaine was injected to clear the needle and the needle was removed. The area was cleansed, Band-Aid was applied. The patient was allowed to ambulate to the recovery room, discharged in good and stable condition. <ELECTRONICALLY SIGNED> By: Mitesh Sims DO 01/11/18 0710 1130 1950 Mitesh Sims DO /nt
[2018-01-08 10:27] VITALS: BP 137/80
== END | disposition home or self-care (01) ==
LOC: PAIN 06:59
DX: M54.16 Radiculopathy, lumbar region (principal); G89.29 Other chronic pain; Z98.890 Other specified postprocedural states; Z96.641 Presence of right artificial hip joint; Z88.0 Allergy status to penicillin; Z88.6 Allergy status to analgesic agent; Z88.8 Allergy status to other drugs, medicaments and biological substances; Z87.440 Personal history of urinary (tract) infections; Z87.19 Personal history of other diseases of the digestive system

== ENCOUNTER → 2018-01-22 | Outpatient (CLI) | payer OTHER ==
[~2018-01-22] VITALS: Ht 167.6 cm; Wt 65.8 kg
--- NOTE | ~2018-01-22 | HPC ---
[facility] [place] [address] PAIN MANAGEMENT CONSULTATION Name: ARTHUR OSMAN Room #: REG Trev Roland.#: [id number] Admission: 01/22/18 Attend Phys: Mitesh Sims DO Discharge: Date of : 30 Report #: [id number] THIS REPORT FOR: //name// CC: [facility] physician/PCP Mitesh Sims The patient is a very pleasant 87-year-old female, long known to the pain clinic, being treated for lumbar radiculopathy status post decompressive laminectomy, axial back pain requiring complex medication management. Last seen in the pain clinic on 01/08/2018, we progressed to a left L4-L5 transforaminal epidural injection. She prior had a similar injection back in June with 80% improvement of baseline pain. Returns to pain clinic today noting again about 80% improvement of left radicular pain. While this has been quite helpful, she does note ongoing pain in her left knee that is a new diagnosis. She has pain with standing and walking. Relief when she is not weight-loading the knee. The patient denies ballottable edema, left knee. She is status post right total knee arthroplasty. PHYSICAL EXAMINATION: Shows a pleasant 87-year-old female, BMI is 23.4 kilograms per meter squared. Blood pressure 116/69, pulse 76, respirations 16. She is alert and oriented to person, place and time, judged to be a reasonable historian. Cervical range of motion is full. Rises from chair using armrest. Diffuse tenderness across the low back, is fairly nominal. Gait is modestly antalgic favoring the left knee. Straight leg raise is negative. Lower extremity strength is generally preserved. Ligaments anterior and posterior cruciate as well as medial and lateral collateral ligaments appear to be intact. There is crepitance with deviation of the patella. Pain when standing and with palpation of the lateral aspect of the knee. ASSESSMENT: 1. Symptomatic lumbar radiculopathy status post decompressive laminectomy, axial back pain requiring complex medication management, stable after the last epidural injection, follow up as needed for left L4-L5 transforaminal epidural injection. We will have her follow up with Dr. Zenon Sims. Continue Celebrex 100 mg a day p.r.n., though she uses this on a nondaily basis; tramadol for pain, does not require prescription for same; gabapentin 100 mg at bedtime. 2. Acute osteoarthritis, left knee, requiring interventional therapy, status post right total knee arthroplasty. RECOMMENDATION: Left knee injection under fluoroscopy today, local anesthetic and steroid. Ice to the area, watch for signs of infection, continue range of motion and core strengthening exercise and simply increase ambulation as tolerance. She does use a cane for balance. [address] [address] PAIN MANAGEMENT CONSULTATION Name: ARTHUR OSMAN Room #: REG CLTrev Nicolas#: [id number] Admission: 01/22/18 Attend Phys: Mitesh Sims DO Discharge: Date of : 30 Report #: [id number] PROCEDURE: Left knee injection under fluoroscopy. PROCEDURE NOTE: After written and informed consent was obtained, the patient was taken to the fluoroscopy suite, placed in the supine position with a bolster into the right knee. Sterile prep and drape, skin wheal with Xylocaine was raised. A 20-gauge Angiocath was inserted from the lateral superior aspect, in the inferior medial fashion of the patella. Negative aspiration was accomplished. 1 mL of Omnipaque was injected, which showed spread within the knee joints. This was followed with 40 mg triamcinolone plus 2 mL of 0.5% preservative-free bupivacaine. The Angiocath was removed. The area was cleansed. Band-Aids applied. The patient monitored for an appropriate period of time, discharged in good and stable condition. <ELECTRONICALLY SIGNED> By: Mitesh Sims DO 01/25/18 [id number] Mitesh Sims DO /nt
[2018-01-22 09:48] VITALS: BP 116/69
== END | disposition home or self-care (01) ==
LOC: PAIN 06:52
DX: M17.12 Unilateral primary osteoarthritis, left knee (principal); G89.29 Other chronic pain; M54.16 Radiculopathy, lumbar region; K85.90 Acute pancreatitis without necrosis or infection, unspecified; Z96.651 Presence of right artificial knee joint; Z98.890 Other specified postprocedural states; Z79.891 Long term (current) use of opiate analgesic; Z87.440 Personal history of urinary (tract) infections; Z88.0 Allergy status to penicillin; Z88.8 Allergy status to other drugs, medicaments and biological substances; Z79.899 Other long term (current) drug therapy

== ENCOUNTER 2018-02-23 16:47 | Emergency (ER) | payer OTHER ==
[~2018-02-23] VITALS: Ht 162.6 cm; Wt 62.6 kg
[2018-02-23 17:33] LABS: URINE BILIRUBIN NEGATIVE (Negative); URINE BLOOD NEGATIVE (Negative); URINE CLARITY CLEAR; URINE COLOR YELLOW; URINE GLUCOSE-RANDOM* NEGATIVE (Negative); URINE KETONES NEGATIVE (Negative); URINE LEUKOCYTES-REFLEX NEGATIVE (Negative); URINE NITRITE-REFLEX NEGATIVE (Negative); URINE PROTEIN (DIPSTICK) NEGATIVE (Negative); URINE SPECIFIC GRAVITY <= 1.005 (1.005-1.035); URINE UROBILINOGEN 0.2 E.U./dl (0.2-1.0)
[2018-02-23 17:54] LABS: ABSOLUTE NEUTROPHILS 5.5 thou/uL (1.4-8.2); BASOPHILS 0.7 % (0.0-2.0); EOSINOPHILS 0.5 % (0.0-3.0); HEMATOCRIT 39.6 % (37.0-47.0); HEMOGLOBIN 13.7 gm/dL (12.0-15.0); LYMPHOCYTES 34.3 % (24.0-44.0); MCH 31.7 pg (26.0-34.0); MCHC 34.6 g/dL (28.0-37.0); MCV 91.6 fL (80.0-100.0); MONOCYTES 9.8 % (1.0-8.0); PLATELET COUNT 226 thou/uL (150-400); POLYS 54.7 % (36.0-66.0); RBC 4.32 mil/uL (4.20-5.00); WBC 10.1 thou/uL (4.0-11.0)
[2018-02-23 18:02] LABS: CALCIUM 9.4 mg/dL (8.5-10.1); POTASSIUM 3.8 mmol/L (3.5-5.1)
[2018-02-23 18:08] LABS: ALBUMIN 3.5 g/dL (3.4-5.0); TOTAL BILIRUBIN 0.4 mg/dL (<0.1-1.0); TOTAL PROTEIN 6.8 g/dL (6.4-8.2)
== END 2018-02-23 20:45 | disposition home or self-care (01) ==
LOC: ER 16:47
PROVIDERS: Physician Assistant
DX: E87.1 Hypo-osmolality and hyponatremia (principal); R68.83 Chills (without fever); R35.0 Frequency of micturition; R19.7 Diarrhea, unspecified; M79.604 Pain in right leg; M79.605 Pain in left leg; G89.29 Other chronic pain; E03.9 Hypothyroidism, unspecified; M79.7 Fibromyalgia; F41.9 Anxiety disorder, unspecified; F32.9 Major depressive disorder, single episode, unspecified; G62.9 Polyneuropathy, unspecified; Z91.048 Other nonmedicinal substance allergy status; Z88.0 Allergy status to penicillin; Z88.5 Allergy status to narcotic agent; Z88.6 Allergy status to analgesic agent; Z90.49 Acquired absence of other specified parts of digestive tract; Z98.890 Other specified postprocedural states; Z96.651 Presence of right artificial knee joint

== ENCOUNTER → 2018-06-30 | Outpatient (CLI) | payer OTHER ==
[~2018-06-30] VITALS: Ht 167.6 cm; Wt 71.7 kg
[~2018-06-30] MED LIST changes: +NEURONTIN100 MG PO
--- NOTE | ~2018-06-30 | HPC ---
[facility] [place] [address] [address] [place] [address] PAIN MANAGEMENT CONSULTATION Name: ARTHUR OSMAN Room #: REG [facility] M..#: [id number] Admission: 06/30/18 Attend Phys: Zenon Sims DO Discharge: Date of : 30 Report #: [id number] THIS REPORT FOR: //name// CC: Dr. Nya Alatorre DATE OF SERVICE: 06/30/2018 PRIMARY CARE PHYSICIAN: Dr. Fay. CHIEF COMPLAINT: Low back pain, left lower extremity pain and paresthesias. HISTORY OF PRESENT ILLNESS: As you know, the patient is a very pleasant 87-year-old female with longstanding history of lumbar radiculopathy secondary to changes in the lumbar region leading to central canal stenosis, neural foraminal stenosis and facet arthropathy pain. The patient was last seen in our clinic on 04/07/2018, underwent an epidural injection under fluoroscopic guidance with excellent benefit. She reports pain improvement of greater than 75%, lasting for nearly 3 months. Unfortunately, the patient has had a slow and progressive return of symptoms for which she now places pain score 2-3/10. She states her pain is a sharp, aching tenderness and sore in sensation, exacerbated with walking, standing any length of time; improves with medications, seated position, elevating her legs and epidural injections. She returns today requesting next in the series of epidural injections. ALLERGIES: PENICILLIN, CAFFEINE, MORPHINE, CODEINE, ASPIRIN. CURRENT MEDICATIONS: Gabapentin, acetaminophen, levothyroxine, tramadol, valacyclovir, Align, multivitamin, omeprazole, celecoxib, duloxetine. SOCIAL HISTORY: The patient denies tobacco, alcohol, IV or illicit drug use. She lives in an assisted living facility. She is unaccompanied today. IMAGING: No new imaging available. PQRS: The patient has osteoarthritic changes to the low back, bilateral knees, bilateral hands, bilateral shoulders. No rheumatoid arthritis. She is placing her current pain intensity at 2-3/10. She is a fall risk, but has not had a fall in the last 3 months. She does use a cane for ambulation. She is not on blood thinner. She is not treated for hypertension. She has been on opioids for an extended period of time, but currently is not on any opioid. She is a low risk of opioid addiction. She is placing pain impact score at 18/70, mild interference. [address] [address] PAIN MANAGEMENT CONSULTATION Name: ARTHUR OSMAN Room #: REG [facility].#: [id number] Admission: 06/30/18 Attend Phys: Zenon Sims DO Discharge: Date of : 30 Report #: [id number] PHYSICAL EXAMINATION: VITAL SIGNS: Blood pressure 125/71, pulse 77, respiratory rate 16 and unlabored. The patient is 97% on room air. Height 5 feet 6 inches tall, weight 158 pounds, BMI calculated 25.5. GENERAL: Well-developed, well-nourished, well-hydrated 87-year-old female appearing stated age, placing current pain score 2-3/10. HEENT: Normocephalic, atraumatic. Pupils equal, round, reactive to light. EXTREMITIES: Show no clubbing, no cyanosis, no edema. MUSCULOSKELETAL: The patient has a palpatory tenderness once again over the paraspinal musculature of lower lumbar spine, no spinous process tenderness. Seated straight leg raising negative. Supine straight leg raising negative. Mateus's test is positive left, negative right. Gait mildly antalgic. There is some palpatory tenderness noted over the anterior thighs. No specific trigger points. ASSESSMENT: 1. Symptomatic lumbar radiculopathy. 2. Left hip pain, status post left total hip arthroplasty. 3. Neural foraminal stenosis of the lumbar spine. 4. Lumbosacral spondylosis with radiculopathy. 5. Displacement of lumbar intervertebral disk with radiculopathy. 6. Lumbar degeneration. 7. Post-laminectomy syndrome. 8. Chronic intractable pain. PLAN: 1. The patient returns today in followup visit requesting to undergo epidural injection under fluoroscopic guidance. The patient indicates that she is being treated actively for an ear infection. She has just started her antibiotic therapy yesterday taking two of her dosing yesterday with a 5-day dosing. I advised the patient that there is a possibility that with epidural injection, specifically steroid exposure, that this may reduce her capability of mounting an appropriate response to the bacterial infection and may render the antibiotics less effective. We discussed this at length today. I did advise the patient if she wished to take the risk of undergoing an epidural injection and potentially reducing her immune response, we may do so. The literature is fairly nonspecific into this area, though there has been anecdotal evidence showing that infection risk is higher. She chose to delay the next in the series of epidural injections until next week when she will have completed her antibiotic therapy and improvement in symptoms has occurred. 2. The patient will be a provided an appointment with our clinic next Thursday at around 10:00 a.m. to undergo epidural injection under fluoroscopic guidance. We have made the patient's appointment. She will be here early to check in and undergo the procedure about 10:00 a.m. 3. There are no medication changes made at today's visit. The patient will continue antibiotic therapy as directed. She will complete this therapy before [facility] [address] [place] [address] PAIN MANAGEMENT CONSULTATION Name: ARTHUR OSMAN Room #: REG CHRISTOSTrev Nicolas#: [id number] Admission: 06/30/18 Attend Phys: Zenon Sims DO Discharge: Date of : 30 Report #: [id number] our next visit. 4. We will see the patient back in followup visit Thursday for epidural injection under fluoroscopic guidance to address lumbar radicular symptoms. <ELECTRONICALLY SIGNED> By: Zenon Sims DO 07/06/18 1520 [id number] Zenon Sims DO /nt
[2018-06-30 09:47] VITALS: BP 125/71
== END ==
LOC: PAIN 09:08
DX: M47.27 Other spondylosis with radiculopathy, lumbosacral region (principal); M51.16 Intervertebral disc disorders with radiculopathy, lumbar region; G89.4 Chronic pain syndrome; M96.1 Postlaminectomy syndrome, not elsewhere classified; M48.061 Spinal stenosis, lumbar region without neurogenic claudication; M25.552 Pain in left hip; Z96.642 Presence of left artificial hip joint

== ENCOUNTER → 2018-07-06 | Outpatient (CLI) | payer OTHER ==
[~2018-07-06] VITALS: Ht 167.6 cm; Wt 71.5 kg
--- NOTE | ~2018-07-06 | HPC ---
[address] [address] PAIN MANAGEMENT CONSULTATION Name: ARTHUR OSMAN Room #: REG [facility] M..#: [id number] Admission: 07/06/18 Attend Phys: Zenon Sims DO Discharge: Date of : 30 Report #: [id number] THIS REPORT FOR: //name// CC: DR LEXA Alatorre DATE OF SERVICE: 07/06/2018 REFERRING PHYSICIAN: Dr. Fay. CHIEF COMPLAINT: Low back pain, left lower extremity pain with paresthesias. HISTORY OF PRESENT ILLNESS: As you know, the patient is an 87-year-old female, returning in followup visit to undergo lumbar epidural injection under fluoroscopic guidance. We saw the patient on 06/30/2018. At that time, she was on antibiotic therapy. We chose to delay this elective procedure until which time she was off the antibiotics and treated for her infections. She states she has resolved from her symptoms and returns today in followup visit to receive epidural injection under fluoroscopic guidance to address lumbar radicular symptoms. The patient is placing pain score at 3-5/10. She returns today in followup visit to undergo this epidural injection, off antibiotics for the past 4 days. ALLERGIES: PENICILLIN, CAFFEINE, MORPHINE, CODEINE, ASPIRIN. CURRENT MEDICATIONS: Gabapentin, acetaminophen, levothyroxine, tramadol, valacyclovir Align, multivitamin, omeprazole, celecoxib and duloxetine. SOCIAL HISTORY: The patient denies tobacco, IV or illicit drug use. Denies any chronic alcohol use. She lives in assisted living facility, unaccompanied today. IMAGING: No new imaging available. PQRS: The patient denies osteoarthritic changes of the low back, bilateral knees, bilateral hands, bilateral shoulders and no rheumatoid arthritis. She is placing pain today at 3-5/10. She is a fall risk, has not had a fall in the last 3 months. She is not on blood thinners. She is treated for hypothyroidism, but no hypertension. She is on opioids for greater than 6 weeks. She is a low risk for opioid addiction, placing pain impact score at 18/70, indicating mild interference of daily activities secondary to pain. PHYSICAL EXAMINATION: [facility] [address] [place] [address] PAIN MANAGEMENT CONSULTATION Name: ARTHUR OSMAN Room #: REG [facility]#: [id number] Admission: 07/06/18 Attend Phys: Zenon Sims DO Discharge: Date of : 30 Report #: [id number] VITAL SIGNS: Blood pressure 126/70, pulse 80, respiratory rate 16 and unlabored, the patient is 95% on room air. Height 5 feet 6 inches tall, weight 157.6 pounds, BMI calculated 25.4. GENERAL: Well-developed, well-nourished, well-hydrated 87-year-old female, appearing stated age. Pain is rated at 3-5/10. HEENT: Normocephalic, atraumatic. Pupils equal, round, reactive to light. EXTREMITIES: Show no clubbing, no cyanosis, no edema. MUSCULOSKELETAL: Lower extremity strength is symmetrical 5/5. Deconditioning noted bilaterally. Seated straight leg raising negative. Supine straight leg raising negative. Mateus test negative on the right, positive on the left. Mild antalgic gait. ASSESSMENT: 1. Symptomatic lumbar radiculopathy. 2. Left hip pain, status post left total hip arthroplasty. 3. Displacement of lumbar intervertebral disk with radiculopathy. 4. Lumbosacral spondylosis with radiculopathy. 5. Neural foraminal stenosis of lumbar spine. 6. Post-laminectomy syndrome. 7. Lumbar degeneration. 8. Chronic intractable pain. PLAN: 1. The patient returns today in followup visit to undergo epidural injection under fluoroscopic guidance. The patient has been off her antibiotics for the past couple of days in preparation for today's procedure. The patient states she has had complete resolution of her infectious processes. She returns to undergo epidural injection under fluoroscopic guidance to address lumbar radicular symptoms. 2. No medication changes made at today's visit. The patient to continue current medical therapy as previously prescribed. 3. The patient to return to our clinic on an as needed basis for the next in the series of epidural injections. PROCEDURE NOTE DESCRIPTION OF PROCEDURE: Lumbar epidural steroid injection under fluoroscopic guidance. After obtaining written consent, the patient was taken back to fluoroscopy suite, placed in prone position with pillow under abdomen to decrease lumbar lordosis. Skin overlying lumbosacral area then prepped and draped in aseptic fashion. Lumbar intervertebral spaces were identified by AP fluoroscopy. Skin and subcutaneous tissue overlying target site of injection anesthetized with 3 mL of 1% lidocaine. [address] [address] PAIN MANAGEMENT CONSULTATION Name: ARTHUR OSMAN Room #: REG [facility] Nicolas#: [id number] Admission: 07/06/18 Attend Phys: Zenon Sims DO Discharge: Date of : 30 Report #: [id number] A 20-gauge 3-1/2 inch Tuohy needle advanced under fluoroscopic guidance towards the epidural space using a parasagittal approach. Epidural space identified using loss of resistance to air technique. After negative aspiration for heme or cerebrospinal fluid, 1 mL of Omnipaque injected. Lumbar epidurogram confirmed using both AP and lateral fluoroscopy. After negative aspiration for heme or cerebrospinal fluid, 5 mL of a solution containing 2 mL 40 mg per mL, 80 mg total triamcinolone, 3 mL lidocaine 1% injected slowly. Needle retracted care home, flushed with 1 mL of 1% lidocaine and removed. Sterile bandage placed over injection site. No new motor deficits present in lower extremity following procedure. The patient tolerated procedure well, carefully escorted to recovery room in stable condition. No apparent complications. After meeting discharge criteria, the patient discharged home. By: 1400 1643 Zenon Sims DO /nt
[2018-07-06 10:02] VITALS: BP 126/70
== END | disposition home or self-care (01) ==
LOC: PAIN 07-05 12:23
DX: M51.16 Intervertebral disc disorders with radiculopathy, lumbar region (principal); M47.27 Other spondylosis with radiculopathy, lumbosacral region; M99.73 Connective tissue and disc stenosis of intervertebral foramina of lumbar region; M96.1 Postlaminectomy syndrome, not elsewhere classified; G89.29 Other chronic pain; M17.0 Bilateral primary osteoarthritis of knee; M19.042 Primary osteoarthritis, left hand; M19.041 Primary osteoarthritis, right hand; M19.012 Primary osteoarthritis, left shoulder; M19.011 Primary osteoarthritis, right shoulder; E03.9 Hypothyroidism, unspecified; Z96.642 Presence of left artificial hip joint; Z88.0 Allergy status to penicillin; Z88.8 Allergy status to other drugs, medicaments and biological substances; Z79.899 Other long term (current) drug therapy; Z79.891 Long term (current) use of opiate analgesic

== ENCOUNTER → 2018-08-25 | Outpatient (CLI) | payer OTHER ==
--- NOTE | 2018-08-25 08:35 | 2DMMODE ---
[facility] [place] [place] [address] 2 D/M-MODE ECHOCARDIOGRAM Name: DAWSONARTHUR Room #: REG [facility]#: [id number] Admission: 08/25/18 Attend Phys: Lake Cheung Discharge: Date of : 30 Date of Service: 08/25/18 0835 Report #: [id number] THIS REPORT FOR: //name// APPROVED REPORT Study performed: 08/25/2018 07:52:27 EXAM: Comprehensive 2D, Doppler, and color-flow Echocardiogram Patient Location: Out-Patient Status: routine BSA: 1.77 HR: 65 bpm BP: 114/78 mmHg Rhythm: NSR Other Information Study Quality: Adequate Indications Chest Pain Mitral valve disease. 2D Dimensions RVDd: 34.42 mm IVSd: 12.00 (7-11mm) LVOT Diam: 19.72 (18-24mm) LVDd: 44.26 mm PWd: 9.15 (7-11mm) Ascending Ao: 36.06 (22-36mm) LVDs: 30.06 (25-40mm) Aortic Root: 31.45 mm Volumes Left Atrial Volume (Systole) Single Plane 4CH: 41.51 mL Single Plane 2CH: 42.74 mL LA ESV Index: 26.00 mL/m2 Aortic Valve AoV Peak Primo.: 1.64 m/s AO Peak Gr.: 10.70 mmHg LVOT Max P.72 mmHg LVOT Max V: 0.96 m/s COLIN Vmax: 1.80 cm2 Mitral Valve E/A Ratio: 0.6 MV Decel. Time: 363.96 ms [facility] [place] [address] 2 D/M-MODE ECHOCARDIOGRAM Name: DAWSONARTHUR BRANDI Room #: REG CL [facility]#: [id number] Admission: 08/25/18 Attend Phys: [place] Cheung Discharge: Date of : 30 Date of Service: 08/25/18 0835 Report #: [id number] MV E Max Primo.: 0.52 m/s MV A Primo.: 0.87 m/s MV PHT: 105.55 ms IVRT: 129.18 ms Pulmonary Valve PV Peak Primo.: 0.77 m/s PV Peak Gr.: 2.36 mmHg Pulmonary Vein P Vein S: 0.69 m/s P Vein A: 0.46 m/s P Vein D: 0.36 m/s P Vein A Dur.: 110.7 msec P Vein S/D Ratio: 1.92 Tricuspid Valve TR Peak Primo.: 2.27 m/s RAP Estimate: 5.00 mmHg TR Peak Gr.: 20.57 mmHg PA Pressure: 26.00 mmHg Left Ventricle The left ventricle is normal size. There is normal LV segmental wall motion. Mild septal hypertrophy is present. Left ventricular systolic function is normal. LVEF is 60%. Mild diastolic dysfunction is present (impaired relaxation pattern). Right Ventricle The right ventricle is normal size. The right ventricular systolic function is normal. Atria The left atrium size is normal. The right atrium size is normal. Aortic Valve Aortic valve leaflets are mildly thickened. Mild aortic regurgitation. There is no aortic valvular stenosis. Mitral Valve The mitral valve is normal in structure. Mild mitral regurgitation. No evidence of mitral valve stenosis. Tricuspid Valve The tricuspid valve is normal in structure. Trace tricuspid regurgitation. Estimated PAP is 25-30mmHg. Pulmonic Valve The pulmonary valve is normal in structure. Trace pulmonic [facility] [address] [place] [address] 2 D/M-MODE ECHOCARDIOGRAM Name: DAWSONARTHUR [facility] [id number] Admission: 08/25/18 Attend Phys: [place] Cheung Discharge: Date of : 30 Date of Service: 08/25/18 0835 Report #: [id number] regurgitation. Great Vessels The aortic root is normal in size. The ascending aorta is normal in size. IVC is normal in size and collapses >50% with inspiration. Pericardium There is no pericardial effusion. <Conclusion> The left ventricle is normal size. LVEF is 60%. Aortic valve leaflets are mildly thickened. Mild aortic regurgitation. The mitral valve is normal in structure. Mild mitral regurgitation. The tricuspid valve is normal in structure. Trace tricuspid regurgitation. Estimated PAP is 25-30mmHg. The pulmonary valve is normal in structure. Trace pulmonic regurgitation. There is no pericardial effusion. <ELECTRONICALLY SIGNED> By: Lake Moore MD 08/25/1835 4 Lake Moore MD /INF
== END ==
LOC: NUC 07:13
DX: I08.0 Rheumatic disorders of both mitral and aortic valves (principal); R94.31 Abnormal electrocardiogram [ECG] [EKG]

== ENCOUNTER → 2018-09-13 | Outpatient (CLI) | payer OTHER | LOC: MRI 08:56 | DX: I67.82 Cerebral ischemia (principal); R42 Dizziness and giddiness; Z79.899 Other long term (current) drug therapy ==

== ENCOUNTER → 2018-10-20 | Outpatient (CLI) | payer OTHER ==
[~2018-10-20] VITALS: Ht 167.6 cm; Wt 72.8 kg
[~2018-10-20] MED LIST changes: +TOPIRAMATE15 MG PO
[2018-10-20 11:36] VITALS: BP 129/56
--- NOTE | 2018-10-20 11:48 | NUR ---
Pain Clinic Assessment: 1. History of Osteoarthritis: all extremities History of Rheumatoid Arthritis: Not Applicable 2. Height: 5 ft. 6 in. 167.6 cm. Weight: 160.6 lb. oz. 72.848 kg. Patient's BMI: 25.9 3. Vital Signs: BP: 129/56 Pulse: 70 Resp: 16 Temp: 02 Sat: 98 ECG Mon: 4. Pain Intensity: 5-now 5. Fall Risk: Dizziness: N Needs help standing or walking: Y Fallen in the last 3 months: N Fall risk comments: 6. Patient on Blood Thinner: None 7. History of Hypertension: N 8. Opioid Therapy greater than 6 weeks: Y Opiate Contract Signed: 9. Risk Assessment Tool Provided: LOW RISK 0/3 10. Functional Assessment Tool: 11. Recreational Drug Use: Never Drug Type: Tobacco Use: Never Smoker Tobacco Type: Amount or Packs/day: How Many Years: Alcohol Use: No Frequency: Quant:
--- NOTE | 2018-10-27 08:13 | HPC ---
[facility] [place] [address] PAIN MANAGEMENT CONSULTATION Name: ARTHUR OSMANYCE Room #: REG [facility]..#: [id number] Admission: 10/20/18 ������������������ Attend Phys: Zenon Sims DO Discharge: ������������������ Date of : 30 Report #: [id number] THIS REPORT FOR: //name// CC: Dr. Nya Alatorre MD DATE OF SERVICE: 10/20/2018 CHIEF COMPLAINT: Low back pain, left lower extremity pain with paresthesias. HISTORY OF PRESENT ILLNESS: As you know, the patient is an 87-year-old female who returns today in followup visit to undergo lumbar epidural injection under fluoroscopic guidance. At our last visit, the patient underwent an epidural injection, which provided symptom improvement of greater than 50%. Unfortunately, her symptoms have returned to a level where she is now complaining of approximately 25% improvement overall. She indicates her pain is in the low back, bilateral lower buttocks radiating into the groins and down the legs. She states pain is chronic in nature. She describes the pain as sharp, aching, tender, sore, numbness and tingling, exacerbated with walking and standing; improves with medications, seated position, elevating her legs and epidural injections. She returns today to undergo next in the series of epidural injections in hopes of improving overall pain. ALLERGIES: PENICILLIN, CAFFEINE, MORPHINE, CODEINE, ASPIRIN. CURRENT MEDICATIONS: Gabapentin, topiramate, acetaminophen, levothyroxine, tramadol, valacyclovir, Align, multivitamin, omeprazole, celecoxib, duloxetine. SOCIAL HISTORY: The patient denies tobacco, IV or illicit drug use. She is living in an assisted living facility. She is unaccompanied today. IMAGING: No new imaging available. PQRS: The patient has known arthritic changes of the lumbar spine, bilateral knees, bilateral hips, bilateral hands, bilateral shoulders. No rheumatoid arthritis. She is a fall risk, but has not had a fall in the last 3 months. She is using a roller walker for assistance. She is not on blood thinner. She is not treated for hypertension. She is not on any blood thinner. She has been on opioids for an extended period of time. She is a low risk for opioid addiction. She is placing pain impact score at 18/70 indicating mild interference of daily activities secondary to pain. PHYSICAL EXAMINATION: VITAL SIGNS: Blood pressure 129/56, pulse 70, respiratory rate 16 and [facility] [address] [place] [address] PAIN MANAGEMENT CONSULTATION Name: ARTHUR OSMAN Room #: REG [facility]#: [id number] Admission: 10/20/18 ������������������ Attend Phys: Zenon Sims DO Discharge: ������������������ Date of : 30 Report #: [id number] unlabored. The patient is 98% on room air. Height 5 feet 6 inches tall, weight 160.6 pounds, BMI calculated 25.9. GENERAL: Well-developed, well-nourished, well-hydrated 87-year-old female appearing stated age, placing current pain score at 5/10. HEENT: Normocephalic, atraumatic. Pupils equal, round, reactive to light. Speech fluent. The patient deemed a poor historian. EXTREMITIES: Show no clubbing, no cyanosis, and no edema. MUSCULOSKELETAL: Lower extremity strength appears symmetrical 5/5. Deconditioning noted bilaterally. Seated straight leg raising negative. Supine straight leg raising negative. Mateus's test is negative on the right, positive left. Antalgic gait. Standing from seated position exacerbates axial back pain. ASSESSMENT: 1. Symptomatic lumbar radiculopathy. 2. Left hip pain, status post total hip arthroplasty. 3. Displacement of lumbar intervertebral disk with radiculopathy. 4. Lumbosacral spondylosis with radiculopathy. 5. 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 6. Post-laminectomy syndrome. 7. Lumbar degeneration. 8. Chronic intractable pain. PLAN: 1. The patient returns today in followup visits with pain score of up to 5/10 with ambulation. She has requested and we will perform next in the series of epidural injections under fluoroscopic guidance. She has noted some benefit with these injections, the most recent provided 50% improvement in overall pain lasting for an extended period of time, but unfortunately we have had a slow and progressive return of symptoms with a total of 25% improvement overall. She returns today requesting to undergo epidural injection. She has been advised risks and benefits of the procedure, states understood and wished to proceed. 2. No medication changes made at today's visit. The patient will continue current medical therapy as previously prescribed. 3. We will see the patient back in followup visit on an as needed basis for possible next in the series of lumbar epidural injections. DESCRIPTION OF PROCEDURE: Lumbar epidural steroid injection under fluoroscopic guidance. After obtaining written consent, the patient was taken back to fluoroscopy suite, placed in prone position with pillow under abdomen to decrease lumbar lordosis. Skin overlying the lumbosacral area then prepped and draped in aseptic fashion. Lumbar intervertebral spaces were identified by AP fluoroscopy. Skin and subcutaneous tissue overlying target site of injection was anesthetized with 3 mL of 1% lidocaine. [address] [address] PAIN MANAGEMENT CONSULTATION Name: ARTHUR OSMAN Room #: REG [facility]#: [id number] Admission: 10/20/18 ������������������ Attend Phys: Zenon Sims DO Discharge: ������������������ Date of : 30 Report #: [id number] A 20-gauge 3-1/2 inch Tuohy needle advanced under fluoroscopic guidance towards the epidural space using a paramedian approach. Epidural space identified using loss of resistance to air technique. After negative aspiration for heme or cerebrospinal fluid, 1 mL of Omnipaque injected. Lumbar epidurogram was confirmed using both AP and lateral fluoroscopy. After negative aspiration for heme or cerebrospinal fluid, 5 mL of a solution containing 2 mL 40 mg per mL, 80 mg total triamcinolone and 3 mL of lidocaine 1% injected slowly. Needle retracted shelter, flushed with 1 mL of 1% lidocaine and then removed. Sterile bandage placed over injection site. No new motor deficits present in the lower extremities following procedure. The patient tolerated procedure well, carefully escorted to recovery room in stable condition. No apparent complications. After meeting discharge criteria, the patient discharged home. ��������������������������������������������� <ELECTRONICALLY SIGNED> ���������������������������������������� By: Zenon Sims DO ��������������������������������������������� 10/27/18 0813 0836 012 Zenon Sims DO /nt
== END | disposition home or self-care (01) ==
LOC: PAIN
DX: M51.16 Intervertebral disc disorders with radiculopathy, lumbar region (principal); M47.27 Other spondylosis with radiculopathy, lumbosacral region; M48.061 Spinal stenosis, lumbar region without neurogenic claudication; M96.1 Postlaminectomy syndrome, not elsewhere classified; G89.29 Other chronic pain; M25.552 Pain in left hip; Z96.642 Presence of left artificial hip joint; Z88.0 Allergy status to penicillin; Z88.8 Allergy status to other drugs, medicaments and biological substances; Z79.899 Other long term (current) drug therapy; Z98.890 Other specified postprocedural states

== ENCOUNTER 2019-01-28 07:57 | Emergency (ER) | payer OTHER ==
[~2019-01-28] VITALS: Ht 167.6 cm; Wt 68.0 kg
[2019-01-28 09:02] LABS: ABSOLUTE NEUTROPHILS 14.1 thou/uL (1.4-8.2); BASOPHILS 0.2 % (0.0-2.0); EOSINOPHILS 0.3 % (0.0-3.0); HEMATOCRIT 45.7 % (37.0-47.0); HEMOGLOBIN 15.5 gm/dL (12.0-15.0); MCH 32.6 pg (26.0-34.0); MCV 95.8 fL (80.0-100.0); MONOCYTES 6.7 % (1.0-8.0); PLATELET COUNT 239 thou/uL (150-400); POLYS 86.8 % (36.0-66.0); RBC 4.77 mil/uL (4.20-5.00); RDW 13.9 % (10.5-14.5); WBC 16.2 thou/uL (4.0-11.0)
[2019-01-28 09:09] LABS: ANION GAP 11 mmol/L (7-16); BUN 26 mg/dL (7-18); CALCIUM 10.1 mg/dL (8.5-10.1); CHLORIDE 103 mmol/L (98-107); CO2 22 mmol/L (21-32); CREATININE 1.5 mg/dL (0.6-1.0); GLUCOSE 151 mg/dL (74-106); POTASSIUM 4.9 mmol/L (3.5-5.1); SODIUM 136 mmol/L (136-145)
[2019-01-28 09:19] LABS: ALBUMIN 3.8 g/dL (3.4-5.0); LIPASE 278 U/L (73-393); SGOT 89 U/L (15-37); SGPT 113 U/L (30-65); TOTAL BILIRUBIN 0.8 mg/dL (<0.1-1.0); TOTAL PROTEIN 7.9 g/dL (6.4-8.2); TROPONIN-I <0.06 ng/mL (<0.06)
[2019-01-28] MEDS ORDERED: ONDANSETRON ODT8 MG PO (10:33)
[2019-01-28 12:34] VITALS: BP 112/59
--- NOTE | 2019-01-29 11:06 | EKG ---
[place] [address] [facility] [place] [address] ELECTROCARDIOGRAM REPORT Name: ARTHUR OSMAN Room #: DEP [facility]#: [id number] ������������������ Admission: 01/28/19 ������������������ Attend Phys: Discharge: 01/28/19 ������������������ Date of : 30 Report #: [id number] ����������������������������������������������������������������� [id number] THIS REPORT FOR: //name// [facility] ED Test Date: 2019-01-28 Test Time: 12:06:50 Pat Name: ARTHUR OSMAN Department: Room: Gender: F Call Center Director: WG : 1930 Requested By: Perez Rolle Order Number: [id number] MD: Abhishek Kessler Measurements Intervals [place] Rate: 75 P: 28 ME: 186 QRS: -44 QRSD: 96 T: 72 QT: 406 QTc: 454 Interpretive Statements Sinus rhythm Left ventricular hypertrophy Inferior infarct, old Anterior infarct, old Compared to ECG 11/07/2017 21:56:37 No significant changes Electronically Signed On 01-29-2019 11:06:44 CDT by Abhishek Kessler [email or web address] ��������������������������������������������� <ELECTRONICALLY SIGNED> ���������������������������������������� By: Abhishek Kessler MD, [facility] ��������������������������������������������� 01/29/19 1106 1206 120 Abhishek Kessler MD, [facility] /EPI
== END 2019-01-28 12:36 | disposition home or self-care (01) ==
LOC: ER 07:57
PROVIDERS: Emergency Medicine
DX: R11.2 Nausea with vomiting, unspecified (principal); R19.7 Diarrhea, unspecified; M79.7 Fibromyalgia; E03.9 Hypothyroidism, unspecified; F41.9 Anxiety disorder, unspecified; F32.9 Major depressive disorder, single episode, unspecified; G62.9 Polyneuropathy, unspecified; Z98.890 Other specified postprocedural states; Z91.048 Other nonmedicinal substance allergy status; Z88.0 Allergy status to penicillin; Z88.5 Allergy status to narcotic agent; Z88.6 Allergy status to analgesic agent; Z88.8 Allergy status to other drugs, medicaments and biological substances; Z90.49 Acquired absence of other specified parts of digestive tract; Z85.828 Personal history of other malignant neoplasm of skin

== ENCOUNTER 2019-02-28 06:26 | Emergency (ER) | payer OTHER ==
[~2019-02-28] VITALS: Ht 167.6 cm; Wt 65.8 kg
[~2019-02-28 06:26] MED LIST changes: +ONDANSETRON ODT8 MG PO
[2019-02-28 06:52] LABS: ABSOLUTE NEUTROPHILS 9.8 thou/uL (1.4-8.2); BASOPHILS 0.4 % (0.0-2.0); EOSINOPHILS 1.5 % (0.0-3.0); HEMATOCRIT 41.1 % (37.0-47.0); HEMOGLOBIN 13.9 gm/dL (12.0-15.0); LYMPHOCYTES 8.5 % (24.0-44.0); MCH 32.3 pg (26.0-34.0); MCHC 33.9 g/dL (28.0-37.0); MCV 95.2 fL (80.0-100.0); MONOCYTES 4.9 % (1.0-8.0); PLATELET COUNT 231 thou/uL (150-400); POLYS 84.7 % (36.0-66.0); RBC 4.32 mil/uL (4.20-5.00); RDW 13.2 % (10.5-14.5); WBC 11.5 thou/uL (4.0-11.0)
[2019-02-28 06:59] LABS: CALCIUM 10.2 mg/dL (8.5-10.1); CREATININE 1.3 mg/dL (0.6-1.0); POTASSIUM 3.9 mmol/L (3.5-5.1)
[2019-02-28 07:05] LABS: DIRECT BILIRUBIN 0.1 mg/dL (<0.1-0.3); TOTAL BILIRUBIN 0.6 mg/dL (<0.1-1.0); TOTAL PROTEIN 7.7 g/dL (6.4-8.2)
[2019-02-28 07:48] LABS: URINE BILIRUBIN NEGATIVE (Negative); URINE BLOOD NEGATIVE (Negative); URINE CLARITY CLEAR; URINE COLOR YELLOW; URINE GLUCOSE-RANDOM* NEGATIVE (Negative); URINE KETONES 1+ (Negative); URINE LEUKOCYTES-REFLEX TRACE (Negative); URINE NITRITE-REFLEX NEGATIVE (Negative); URINE PROTEIN (DIPSTICK) TRACE (Negative); URINE SPECIFIC GRAVITY 1.015 (1.005-1.035); URINE UROBILINOGEN 0.2 E.U./dl (0.2-1.0)
--- NOTE | 2019-02-28 08:17 | EKG ---
[facility] [place] [address] ELECTROCARDIOGRAM REPORT Name: ARTHUR OSMAN Room #: REG [facility]#: [id number] Admission: 02/28/19 Attend Phys: Discharge: Date of : 30 Report #: [id number] THIS REPORT FOR: //name// [facility] ED Test Date: 2019-02-28 Test Time: 06:58:23 Pat Name: ARTHUR OSMAN Department: Room: Gender: F Patent Lawyer: LEONOR : 1930 Requested By: Frieda Bermudez Order Number: [id number] MD: Abhishek Kessler Measurements Intervals [place] Rate: 77 P: 32 CO: 190 QRS: -45 QRSD: 95 T: 49 QT: 417 QTc: 472 Interpretive Statements Sinus rhythm LAD, consider LAFB or inferior infarct Left ventricular hypertrophy Anterior infarct, old Baseline wander in lead(s) II,III,aVF Compared to ECG 01/28/2019 12:06:50 No significant changes Electronically Signed On 02-28-2019 8:17:13 CDT by Abhishek Kessler [email or web address] <ELECTRONICALLY SIGNED> By: Abhishek Kessler MD, [facility] 02/28/19 0817 0658 0658 Abhishek Kessler MD, [facility] /EPI
[2019-02-28] MEDS ORDERED: ZOFRAN ODT4 MG PO (09:13)
[2019-02-28 09:26] VITALS: BP 150/80
== END 2019-02-28 09:26 | disposition home or self-care (01) ==
LOC: ER 06:26
PROVIDERS: Emergency Medicine
DX: R19.7 Diarrhea, unspecified (principal); R11.2 Nausea with vomiting, unspecified; M79.7 Fibromyalgia; E03.9 Hypothyroidism, unspecified; F41.9 Anxiety disorder, unspecified; F32.9 Major depressive disorder, single episode, unspecified; Z98.890 Other specified postprocedural states; Z85.828 Personal history of other malignant neoplasm of skin; Z96.651 Presence of right artificial knee joint; Z91.040 Latex allergy status; Z88.0 Allergy status to penicillin; Z88.6 Allergy status to analgesic agent

== ENCOUNTER 2019-03-18 06:05 | Emergency (ER) | payer OTHER ==
[~2019-03-18] VITALS: Ht 167.6 cm; Wt 68.0 kg
[~2019-03-18 06:05] MED LIST changes: +ZOFRAN ODT4 MG PO
[2019-03-18 06:38] LABS: BASOPHILS 0.7 % (0.0-2.0); EOSINOPHILS 1.1 % (0.0-3.0); HEMOGLOBIN 14.8 gm/dL (12.0-15.0); LYMPHOCYTES 16.7 % (24.0-44.0); MCH 31.6 pg (26.0-34.0); MCHC 32.9 g/dL (28.0-37.0); MCV 96.1 fL (80.0-100.0); PLATELET COUNT 281 thou/uL (150-400); POLYS 76.5 % (36.0-66.0); RBC 4.68 mil/uL (4.20-5.00); RDW 13.5 % (10.5-14.5); WBC 18.2 thou/uL (4.0-11.0)
[2019-03-18 06:44] LABS: ANION GAP 12 mmol/L (7-16); BUN 17 mg/dL (7-18); CALCIUM 10.3 mg/dL (8.5-10.1); CHLORIDE 100 mmol/L (98-107); CO2 25 mmol/L (21-32); CREATININE 1.7 mg/dL (0.6-1.0); GLUCOSE 165 mg/dL (74-106); POTASSIUM 3.9 mmol/L (3.5-5.1); SODIUM 137 mmol/L (136-145)
[2019-03-18 06:54] LABS: ALBUMIN 4.1 g/dL (3.4-5.0); LIPASE 488 U/L (73-393); SGOT 92 U/L (15-37); SGPT 66 U/L (30-65); TOTAL BILIRUBIN 0.5 mg/dL (<0.1-1.0); TROPONIN-I <0.06 ng/mL (<0.06)
[2019-03-18 09:56] LABS: URINE BILIRUBIN NEGATIVE (Negative); URINE BLOOD NEGATIVE (Negative); URINE CLARITY CLEAR; URINE COLOR YELLOW; URINE GLUCOSE-RANDOM* NEGATIVE (Negative); URINE KETONES NEGATIVE (Negative); URINE LEUKOCYTES-REFLEX NEGATIVE (Negative); URINE NITRITE-REFLEX NEGATIVE (Negative); URINE PROTEIN (DIPSTICK) TRACE (Negative); URINE UROBILINOGEN 0.2 E.U./dl (0.2-1.0)
[2019-03-18] MEDS ORDERED: ONDANSETRON HCL4 M2 PO (10:21)
[2019-03-18 10:57] VITALS: BP 97/53
--- NOTE | 2019-03-22 07:32 | EKG ---
[address] [address] [place] [address] ELECTROCARDIOGRAM REPORT Name: ARTHUR OSMAN [facility] [id number] Admission: 03/18/19 Attend Phys: Discharge: 03/18/19 Date of : 30 Report #: [id number] THIS REPORT FOR: //name// [facility] ED Test Date: 2019-03-18 Test Time: 06:37:33 Pat Name: ARTHUR OSMAN Department: Room: Gender: F Mechanical Manufacturing Engineer: CHRISTIAN : 1930 Requested By: Alexander Perkins Order Number: [id number] MD: Abhishek Kessler Measurements Intervals [place] Rate: 93 P: 61 NH: 178 QRS: -49 QRSD: 96 T: 82 QT: 361 QTc: 449 Interpretive Statements Sinus rhythm Left anterior fascicular block Left ventricular hypertrophy Anterior infarct, old Compared to ECG 02/28/2019 06:58:23 No significant changes Electronically Signed On 03-22-2019 7:31:46 CDT by Abhishek Kessler [email or web address] <ELECTRONICALLY SIGNED> By: Abhishek Kessler MD, [facility] 03/22/19 0731 6 Abhishek Kessler MD, [facility] /EPI
== END 2019-03-18 12:29 | disposition short-term general hospital (02) ==
LOC: ER 06:05
PROVIDERS: Emergency Medicine
DX: R10.30 Lower abdominal pain, unspecified (principal); R11.2 Nausea with vomiting, unspecified; E03.9 Hypothyroidism, unspecified; M79.7 Fibromyalgia; F41.9 Anxiety disorder, unspecified; F32.9 Major depressive disorder, single episode, unspecified; Z98.890 Other specified postprocedural states; Z91.048 Other nonmedicinal substance allergy status; Z88.0 Allergy status to penicillin; Z90.49 Acquired absence of other specified parts of digestive tract; Z88.5 Allergy status to narcotic agent; Z88.6 Allergy status to analgesic agent

== ENCOUNTER 2019-04-03 21:04 | Emergency (ER) | payer OTHER ==
[~2019-04-03] VITALS: Ht 167.6 cm; Wt 68.0 kg
[~2019-04-03 21:04] MED LIST changes: +ONDANSETRON HCL4 M2 PO
[2019-04-03 22:13] LABS: BASOPHILS 0.4 % (0.0-2.0); EOSINOPHILS 0.2 % (0.0-3.0); HEMATOCRIT 42.2 % (37.0-47.0); HEMOGLOBIN 13.9 gm/dL (12.0-15.0); LYMPHOCYTES 10.5 % (24.0-44.0); MCH 31.4 pg (26.0-34.0); MCV 95.2 fL (80.0-100.0); MONOCYTES 8.5 % (1.0-8.0); PLATELET COUNT 283 thou/uL (150-400); POLYS 80.4 % (36.0-66.0); RBC 4.44 mil/uL (4.20-5.00); RDW 13.8 % (10.5-14.5); WBC 12.5 thou/uL (4.0-11.0)
[2019-04-03 22:20] LABS: ANION GAP 16 mmol/L (7-16); BUN 33 mg/dL (7-18); CALCIUM 9.5 mg/dL (8.5-10.1); CHLORIDE 98 mmol/L (98-107); CO2 21 mmol/L (21-32); CREATININE 1.7 mg/dL (0.6-1.0); GLUCOSE 102 mg/dL (74-106); POTASSIUM 3.6 mmol/L (3.5-5.1); SODIUM 135 mmol/L (136-145)
[2019-04-03 22:29] LABS: ALBUMIN 3.6 g/dL (3.4-5.0); LIPASE 161 U/L (73-393); MAGNESIUM 2.4 mg/dL (1.8-2.4); SGOT 25 U/L (15-37); SGPT 25 U/L (30-65); TOTAL BILIRUBIN 0.8 mg/dL (<0.1-1.0); TOTAL PROTEIN 7.3 g/dL (6.4-8.2); TROPONIN-I <0.06 ng/mL (<0.06)
[2019-04-03 23:50] LABS: URINE BILIRUBIN NEGATIVE (Negative); URINE BLOOD NEGATIVE (Negative); URINE CLARITY CLEAR; URINE COLOR YELLOW; URINE GLUCOSE-RANDOM* NEGATIVE (Negative); URINE KETONES 1+ (Negative); URINE LEUKOCYTES-REFLEX NEGATIVE (Negative); URINE NITRITE-REFLEX POSITIVE (Negative); URINE PROTEIN (DIPSTICK) TRACE (Negative); URINE SPECIFIC GRAVITY 1.015 (1.005-1.035); URINE UROBILINOGEN 0.2 E.U./dl (0.2-1.0)
[2019-04-03 23:51] LABS: HYALINE CASTS 4-10 Moderate /LPF (None Seen); MUCUS 0-3 Light strn/LPF (None Seen); SQUAMOUS None Seen /LPF (0-3); TRANSITIONAL EPITHEL CELL 0-3 Few /LPF (None Seen); URINE RBC 0-2 Rare /HPF (0-2); URINE WBC-REFLEX 6-15 Few /HPF (0-5); WBC CLUMPS Few (None Seen)
[2019-04-03 23:52] LABS: BACTERIA-REFLEX >30 Many /HPF (None Seen); CRYSTALS None Seen /LPF (None Seen)
[2019-04-04] MEDS ORDERED: CIPRO500 MG PO (00:44)
[2019-04-04 01:10] VITALS: BP 137/69
--- NOTE | 2019-04-04 08:02 | EKG ---
[address] [address] ELECTROCARDIOGRAM REPORT Name: ARTHUR OSMAN Room #: DEP [facility]#: [id number] ������������������ Admission: 04/03/19 ������������������ Attend Phys: Discharge: 04/04/19 ������������������ Date of : 30 Report #: [id number] ����������������������������������������������������������������� [id number] THIS REPORT FOR: //name// ED Test Date: 2019-04-03 Test Time: 21:47:25 Pat Name: ARTHUR OSMAN Department: Room: Gender: F Director Of Services: TONYA : 1930 Requested By: Henrry Suarez Order Number: [id number] MD: George Rob Measurements Intervals [place] Rate: 84 P: 49 MI: 164 QRS: -42 QRSD: 99 T: 87 QT: 377 QTc: 446 Interpretive Statements Sinus rhythm Left ventricular hypertrophy Anterior infarct, old Compared to ECG 03/18/2019 06:37:33 Left anterior fascicular block no longer present Myocardial infarct finding still present Electronically Signed On 04-04-2019 8:01:41 CDT by George Rob [email or web address] ��������������������������������������������� <ELECTRONICALLY SIGNED> ���������������������������������������� By: George Rob MD ��������������������������������������������� 04/04/19 0801 George Rob MD /BENJI
== END 2019-04-04 01:10 | disposition home or self-care (01) ==
LOC: ER 21:04
PROVIDERS: Emergency Medicine
DX: K52.9 Noninfective gastroenteritis and colitis, unspecified (principal); R11.2 Nausea with vomiting, unspecified; E03.9 Hypothyroidism, unspecified; M79.7 Fibromyalgia; F41.9 Anxiety disorder, unspecified; F32.9 Major depressive disorder, single episode, unspecified; M46.90 Unspecified inflammatory spondylopathy, site unspecified; Z85.828 Personal history of other malignant neoplasm of skin; Z96.651 Presence of right artificial knee joint; Z86.711 Personal history of pulmonary embolism; Z91.018 Allergy to other foods; Z91.040 Latex allergy status; Z88.0 Allergy status to penicillin; Z88.6 Allergy status to analgesic agent

== ENCOUNTER 2019-04-10 04:49 | Inpatient (IN) | payer OTHER ==
[2019-04-10] VITALS (8 sets, daily range): BP systolic 101–141; BP diastolic 56–82
[~2019-04-10] VITALS: Ht 167.6 cm; Wt 52.0 kg
[2019-04-10 05:15] LABS: URINE BILIRUBIN 1+ (Negative); URINE BLOOD NEGATIVE (Negative); URINE CLARITY CLEAR; URINE COLOR YELLOW; URINE GLUCOSE-RANDOM* NEGATIVE (Negative); URINE KETONES TRACE (Negative); URINE LEUKOCYTES-REFLEX NEGATIVE (Negative); URINE NITRITE-REFLEX NEGATIVE (Negative); URINE PROTEIN (DIPSTICK) 1+ (Negative); URINE SPECIFIC GRAVITY 1.025 (1.005-1.035); URINE UROBILINOGEN 0.2 E.U./dl (0.2-1.0)
[2019-04-10 05:16] LABS: ICTOTEST (BILI CONFIRMATORY) Positive (Negative)
[2019-04-10 05:21] LABS: BACTERIA-REFLEX None Seen /HPF (None Seen); CALCIUM OXALATE 4-10 Moderate /LPF (None Seen); CRYSTALS None Seen /LPF (None Seen); HYALINE CASTS >10 Many /LPF (None Seen); MUCUS 0-3 Light strn/LPF (None Seen); SQUAMOUS None Seen /LPF (0-3); URINE RBC None Seen /HPF (0-2); URINE WBC-REFLEX None Seen /HPF (0-5)
[2019-04-10 05:43] LABS: HEMATOCRIT 41.3 % (37.0-47.0); HEMOGLOBIN 13.6 gm/dL (12.0-15.0); MCH 31.3 pg (26.0-34.0); MCV 94.7 fL (80.0-100.0); PLATELET COUNT 285 thou/uL (150-400); RBC 4.36 mil/uL (4.20-5.00); RDW 13.6 % (10.5-14.5); WBC 11.2 thou/uL (4.0-11.0)
[2019-04-10 05:49] LABS: CALCIUM 9.8 mg/dL (8.5-10.1); CREATININE 2.1 mg/dL (0.6-1.0)
[2019-04-10 05:55] LABS: ALBUMIN 3.2 g/dL (3.4-5.0); TOTAL BILIRUBIN 0.5 mg/dL (<0.1-1.0); TOTAL PROTEIN 6.8 g/dL (6.4-8.2)
[2019-04-10] MEDS ORDERED: CBD TINCTURE PO (06:19)
[2019-04-10] MEDS ORDERED: CBD CREAM TOP (06:21)
[2019-04-10 06:53] LABS: ABSOLUTE NEUTROPHILS 7.4 thou/uL (1.4-8.2); ANISOCYTOSIS SLIGHT
--- NOTE | 2019-04-10 07:01 | NUR ---
REPORT GIVEN TO "AMY WILKS ON
--- NOTE | 2019-04-10 18:13 | NUR ---
pt admitted from ER FOR n/v and diarrhea, pt is A&OX3 , and pt pt is forgetful, pt's vs are stable , pt is continuing NS @ 75ML/HR, PT starts eating , pt's n/v and diarrhea have improved by this time, pt has started bowle prepration for 04/11/19 A procedure EGD and coloncospy about 1700pm.pt has singed consent for this procedure.
[2019-04-11 04:51] VITALS: BP 146/78
[2019-04-11 06:07] LABS: HEMATOCRIT 39.2 % (37.0-47.0); HEMOGLOBIN 12.9 gm/dL (12.0-15.0); MCH 31.2 pg (26.0-34.0); MCHC 32.8 g/dL (28.0-37.0); RBC 4.12 mil/uL (4.20-5.00); RDW 13.8 % (10.5-14.5); WBC 11.1 thou/uL (4.0-11.0)
[2019-04-11 06:20] LABS: CALCIUM 9.2 mg/dL (8.5-10.1); CREATININE 1.3 mg/dL (0.6-1.0)
[2019-04-11 06:21] LABS: POTASSIUM 4.2 mmol/L (3.5-5.1)
--- NOTE | 2019-04-11 07:50 | NUR ---
Pt. able to tolerate about 2500 ml of golytely and stated that's all she can handle. Kept NPO after MN for EGD and Colonoscopy.Had several loose bm during the night with last bm this am clear yellow. She didn't sleep much due to bowel prep. When she woke up this am she is disoriented but reoriented easily. She verbalized she just woke up so she's a litlle foggy. Able to answer orientation questions after that.Spoke with daughter Julieta to ask about baseline orientation and she stated this is her norm when she first wake up and this nothing new. GI RN updated. Stool sample sent last night once she started having bm for bowel prep to R/O c diff and for C&S. Unable to collect urine specimen due to bowel prep. KCl po given at HS to replace low K level. No nausea or vomiting this shift. Up with assist x1 to commode. Bed alarm on for safety. SCD's for DVT prophylaxis.Will continue to monitor.
[2019-04-11 08:09] VITALS: BP 133/68
[2019-04-11 12:37] VITALS: BP 168/87
[2019-04-11 15:35] VITALS: BP 149/83
--- NOTE | 2019-04-11 16:29 | NUR ---
INITIAL ASSESSMENT: SW reviewded chart and spoke with nursing and attending physician. Pt was admitted from [facility] due to nausea/vomiting. Pt had EGD/colonoscopy earlier today. SW met with pt at bedside. Introduced role of SW. Pt is alert/orientated. Pt reports she lives alone in an apt at [facility]. Pt has used [facility] in the past. Pt normally uses a walker for ambulation. Pt has been to [facility] in the past. Pt's PCP is Dr. Cooley. Pt states she may want to change to Dr. Randle. landscape architect and planner to contact [facility] tomorrow to determine if pt is currently on service. SW is following to assist as needed with discharge planning.
[2019-04-11 18:50] LABS: URINE BILIRUBIN NEGATIVE (Negative); URINE BLOOD NEGATIVE (Negative); URINE CLARITY CLEAR; URINE COLOR YELLOW; URINE GLUCOSE-RANDOM* NEGATIVE (Negative); URINE KETONES NEGATIVE (Negative); URINE LEUKOCYTES NEGATIVE (Negative); URINE NITRITE NEGATIVE (Negative); URINE PROTEIN (DIPSTICK) NEGATIVE (Negative); URINE UROBILINOGEN 0.2 E.U./dl (0.2-1.0)
[2019-04-11 19:20] VITALS: BP 141/80
--- NOTE | 2019-04-11 19:36 | NUR ---
Assumed care approx. 0700 this AM. Patient NPO this morning for EGD/colonoscopy. Patient's daughter updated at bedside this afternoon. Patient noted to be more confused and forgetful... patient's daughter was asked this AM but said it's common when she is tired. The patient is noted to live home alone... Case management consult discussed with hotel night auditor nurse this evening and may need discussed with doctor tomorrow morning as it may not be safe for the patient to go back alone. Patient starting to gradually consume food as tolerated. Still waiting on stool results to rule out CDIFF. Patient slowly making progress toward plan of care.
[2019-04-12 03:02] VITALS: BP 142/76
[2019-04-12 06:08] LABS: ALBUMIN 2.9 g/dL (3.4-5.0); CALCIUM 9.2 mg/dL (8.5-10.1); PHOSPHORUS 3.3 mg/dL (2.5-4.9); POTASSIUM 3.9 mmol/L (3.5-5.1)
[2019-04-12 07:29] VITALS: BP 155/92
--- NOTE | 2019-04-12 07:54 | NUR ---
Pt. has slept well during the night in between getting up to bedside commode. Still has disorientation intermittently but easily reoriented. Bed alarm for safety. Up with SBA to commode. No nausea or vomiting. No bm this shift , isolation dc'd due to negative c diff. Making progress towards care plan goals.
--- NOTE | 2019-04-12 10:24 | NUR ---
DP called [facility] ([place])) [phone] and spoke to Mala, Mala said patient is pending which means still on service with them. Mala said yes they can have her back for HH if she needs after dc. Mala asked to let them know a day before she is discharged. Patient lives at [facility]. DP to follow up.
--- NOTE | 2019-04-12 14:51 | NUR ---
Following for d/c planning needs. Reviewed chart and spoke with nurse, pt, and 2 daughters. Plan is for pt to return to her independent apartment on d/c from hospital today and then family has made arrangements for pt to go to assisted living at [facility]. Dtr wants facility to remove wall in bedroom to make better access to the bathroom for pt prior to her moving. Daughters also wanted visit from jewel setter prior to d/c. Called jewel setter and asked her to visit with pt and provide food choices for pt. No other needs identified.
[2019-04-12 15:06] VITALS: BP 155/92
--- NOTE | 2019-04-12 15:55 | NUR ---
PATIENT WAS EXCITED TO BRUSH HER TEETH TODAY. SHE WAS ABLE TO COMPLETE THIS WITH NO ASSISTANCE. DISCHARGE TEACHING WAS GIVEN TO HER AND HER DAUGHTER.
--- NOTE | 2019-04-12 16:00 | NUR ---
Assumed care approx. 0700 this AM. Patient recieved discharge orders this AM. Plan for patient to go back to [facility] as before. No nausea, vomiting, or diarrhea. Patient ate meals adequately today. Discharge packet and planning went over with patient's daughter. Case management spoke with patient's daughter as well. Patient's daughter is driving patient back to her facility. Patient left approx. 1600 by wheelchair with transporter.
[2019-04-12 16:04] VITALS: BP 155/92
--- NOTE | 2019-04-12 16:09 | NUR ---
I have reviewed the student's documentation.
--- NOTE | 2019-04-27 09:17 | HC ---
[facility] [place] [address] CONSULTATION Name: ARTHUR OSMAN Room #: 350-P [facility] IN M.R.#: [id number] Admission: 04/10/19 Attend Phys: Chapincito Zhang MD Discharge: 04/12/19 Date of : 30 Report #: [id number] THIS REPORT FOR: //name// CC: Chapincito Cooley DATE OF SERVICE: 04/10/2019 REASON FOR CONSULTATION: Elevated creatinine. REASON FOR PRESENTATION: Nausea, vomiting, diarrhea. HISTORY OF PRESENT ILLNESS: Very pleasant 88-year-old with past medical history of microscopic colitis diagnosed in [place] presented with recurrent nausea, vomiting, diarrhea associated with weakness over the last couple of weeks. She did report a weight loss. She tells me that she was diagnosed with this microscopic colitis back in [place]. She was told by her shanker out that her kidney numbers are slightly off and that she needed to see a kidney doctor. She was supposed to see Dr. Still in my clinic in May 18. Looking back at her labs, she did have episodes of acute kidney injury with a creatinine as high as 1.7; however, with resolution of her acute kidney injury, most of her creatinine values are actually in the normal range with a very mild elevation of 1.3. She does carry extensive medical problems including degenerative disk disease and had required multiple orthopedic surgeries and is currently maintained on Celebrex twice a day. Creatinine on presentation yesterday was elevated at 2.1. She did have hypokalemia. Nephrology consultation was placed to manage her issues. PAST MEDICAL HISTORY: Extensive and includes the followin. C5-C6-C7 fusion. 2. Gallbladder surgery. 3. Right hand ligament thinning and repair. 4. Left thumb carpometacarpal arthroplasty. 5. Decompression laminectomy for L4-L5. 6. Basal cell carcinoma of the nose. 7. Right knee meniscal tear. 8. Right total knee replacement. 9. Benign cyst of the pancreas. 10. Microscopic colitis with gastritis diagnosed in [place]. 11. Pancreatitis. MEDICATIONS: 1. Centrum. 2. Calcium. 3. Acid-citrate. 4. Celebrex. [facility] [address] [place] [address] CONSULTATION Name: ARTHUR OSMAN Room #: 350-P [facility].#: [id number] Admission: 04/10/19 Attend Phys: Chapincito Zhang MD Discharge: 04/12/19 Date of : 30 Report #: [id number] 5. Thyroxine. ALLERGIES: PENICILLIN, MORPHINE, CODEINE, ASPIRIN. FAMILY HISTORY: No known chronic kidney disease in the family. SOCIAL HISTORY: Denies drug or alcohol abuse. Stays with her daughter. REVIEW OF SYSTEMS: GENERAL: Significant for weakness and dizziness. CARDIOVASCULAR: No chest pain or palpitation. PULMONARY: No cough or hemoptysis. GASTROINTESTINAL: As per the history of present illness. GENITOURINARY: No frequency, no urgency. NEUROLOGICAL: Significant for headache and dizziness. PHYSICAL EXAMINATION: GENERAL: The patient was alert, oriented, in no apparent distress. VITAL SIGNS: Blood pressure was 125/60, pulse rate was 81. HEAD AND NECK: No jugular venous distention. CHEST: No crackles. CARDIOVASCULAR: No rub. ABDOMEN: Slight tenderness, no organomegaly. LOWER EXTREMITIES: No edema. LABORATORY DATA: White blood cell count is elevated at 11.2. Sodium is 133, potassium is 3, BUN is 24, creatinine is 2.1. IMPRESSION AND PLAN: 1. Acute kidney injury due to dehydration due to gastrointestinal losses. 2. Hypokalemia. 3. Microscopic colitis. 4. At this point, we will continue with the replacement of her IV fluid. Expect her kidney function to improve with discontinuation of her nonsteroidal anti-inflammatory medications and yazdanism of her volume. Replete potassium. 5. GI workup in progress. <ELECTRONICALLY SIGNED> By: Steve Garrett MD 04/27/19 0917 [id number] Steve Garrett MD /nt
--- NOTE | 2019-04-29 16:06 | PATH ---
[facility] [place] [address] PATHOLOGY RPT PROCEDURE Name: ARTHUR OSMAN Room #: 350-P DIS IN M.R.#: [id number] Admission: 04/10/19 Date of : 30 Discharge: 04/12/19 Report #: [id number] Path Case #: [id number] [facility] Accession Number: [id number] . 01 Material submitted: . PART A: duodenum - BIOPSY DUODENUM R/O CELIAC AND INFECTIOUS ENTERITIS PART B: colon - BIOPSY RANDOM COLON R/O MICROSCOPIC COLITIS . 01 Clinical history: . Pre-OP DX: Diarrhea, nausea with vomiting, Hx microscopic colitis Post-OP DX: None provided . 01 Amended report: . This is an amended report because inaccurate patient demographics were provided by the client. There is no change in the diagnosis. 04/29/2019 AMENDED REPORT: This amendment is issued, per client request, to change the ordering physician from the original physician submitted. The remainder of the report is unchanged. (mml; 04/28/2019) . 02 Diagnosis: A. Small bowel mucosa, duodenum rule out celiac, endoscopic biopsy: - Acute and chronic nonspecific duodenitis with focal fundic-type metaplasia as well as moderate villous blunting (please see comment). - Negative for dysplasia or malignancy. . B. Large intestine mucosa, random colon rule out microscopic colitis, endoscopic biopsy: - Moderate active colitis associated with a significant increase in intraepithelial lymphocytes (please see comment). - Negative for dysplasia or malignancy. . (IUV:gambreler; 04/12/2019) MBR 04/12/2019 1300 Local . 02 Comment: The duodenum biopsy tissue shows focal fundic-type metaplasia in addition to the features of nonspecific acute and chronic inflammation associated with moderate villous blunting. The large intestinal mucosa shows acute cryptitis, foci of surface epithelial inflammation as well as a markedly expanded lamina propria which is comprised of lymphocytes and abundant plasma cells. Numerous intraepithelial lymphocytes are identified. The lymphocytic component is disproportionate to the acute inflammation. Subtle architectural abnormalities are identified as well. Although the findings are suggestive of an inflammatory bowel disease, due to the acute inflammatory component, an evolving lymphocytic colitis cannot be [facility] [address] [place] [address] PATHOLOGY RPT PROCEDURE Name: ARTHUR OSMAN Room #: 350-P DIS IN M.R.#: [id number] Admission: 04/10/19 Date of : 30 Discharge: 04/12/19 Report #: [id number] Path Case #: [id number] excluded. Thickening of subepithelial collagen layer is not identified. The differential diagnosis includes medication/drug-induced colitis as well. . Dr. Myrna Velazquez has seen home office representative slides of this case and concurs with my diagnosis. . (IUV:gambreler; 04/12/2019) . 02 Electronically signed: . Alyssia Carlin MD, Pathologist NPI- [id number] . 01 Gross description: . A. Received in formalin labeled "[place], [place], BX duodenum, rule out celiac infectious enteritis," are 4 segments of waldrop soft tissue measuring 0.9 x 0.9 x 0.3 cm in aggregate dimensions and ranging from 0.3 to 0.4 cm in maximum dimension. The specimen is submitted entirely in cassette A1. . B. Received in formalin labeled "[place], [place], random colon BX," and additionally labeled on the requisition as "rule out microscopic colitis," are 7 segments of waldrop soft tissue measuring 1.0 x 1.0 x 0.2 cm in aggregate dimensions and ranging from 0.3 to 0.4 cm in maximum dimension. The specimen is submitted entirely in cassette B1. (TSD; 04/11/2019) TOB/TOB 04/11/2019 1927 Local . 02 Pathologist provided ICD-10: K29.80, K52.9 . 02 CPT . 374105, 524966 Performed at: [address], [place] [id number] MD Rashaun Fernando MD Phone: [phone] Performed at: [address] [id number] MD Alyssia Carlin MD Phone: [phone]
== END 2019-04-12 16:00 | disposition home or self-care (01) | DRG 391 ==
LOC: ER 04:49 → EROBS 06:21 → 3W 06:21 → ENTRNSPT 04-12 15:50 → EDTRNSPTSTS 04-12 15:53 → 3W 04-12 16:00
PROVIDERS: Emergency Medicine; Hospitalist; ADMIT Hospitalist
PROC: 0DBE8ZX Excision of Large Intestine, Via Natural or Artificial Opening Endoscopic, Diagnostic (ICD-10-PCS; principal; 2019-04-11)
PROC: 0DB98ZX Excision of Duodenum, Via Natural or Artificial Opening Endoscopic, Diagnostic (ICD-10-PCS; principal; 2019-04-11)
DX: K52.9 Noninfective gastroenteritis and colitis, unspecified (principal); N17.0 Acute kidney failure with tubular necrosis; E87.1 Hypo-osmolality and hyponatremia; E87.6 Hypokalemia; E03.9 Hypothyroidism, unspecified; G89.29 Other chronic pain; F41.9 Anxiety disorder, unspecified; F32.9 Major depressive disorder, single episode, unspecified; M79.7 Fibromyalgia; G62.9 Polyneuropathy, unspecified; Z96.651 Presence of right artificial knee joint; R41.0 Disorientation, unspecified; K52.839 Microscopic colitis, unspecified; M19.90 Unspecified osteoarthritis, unspecified site; G43.909 Migraine, unspecified, not intractable, without status migrainosus; I10 Essential (primary) hypertension; E86.0 Dehydration; Z79.899 Other long term (current) drug therapy; Z79.1 Long term (current) use of non-steroidal anti-inflammatories (NSAID); Z88.0 Allergy status to penicillin; Z88.6 Allergy status to analgesic agent; Z88.5 Allergy status to narcotic agent; Z88.8 Allergy status to other drugs, medicaments and biological substances; Z79.2 Long term (current) use of antibiotics; Z98.1 Arthrodesis status
CPT/HCPCS: 10879; 62110; 62900; 70005

== ENCOUNTER → 2019-04-20 | Outpatient (CLI) | payer OTHER ==
[~2019-04-20] VITALS: Ht 165.1 cm; Wt 63.1 kg
[~2019-04-20] MED LIST changes: +CBD CREAM TOP; +CBD TINCTURE PO
[2019-04-20 09:41] VITALS: BP 125/68
--- NOTE | 2019-04-20 09:50 | NUR ---
Pain Clinic Assessment: 1. History of Osteoarthritis: all extremities History of Rheumatoid Arthritis: Not Applicable 2. Height: 5 ft. 5 in. 165.1 cm. Weight: 139.2 lb. oz. 63.141 kg. Patient's BMI: 23.2 3. Vital Signs: BP: 125/68 Pulse: 80 Resp: 14 Temp: 02 Sat: 97 ECG Mon: 4. Pain Intensity: 5 5. Fall Risk: Dizziness: N Needs help standing or walking: Y Fallen in the last 3 months: N Fall risk comments: 6. Patient on Blood Thinner: None 7. History of Hypertension: N 8. Opioid Therapy greater than 6 weeks: Y Opiate Contract Signed: 9. Risk Assessment Tool Provided: LOW RISK 0/3 10. Functional Assessment Tool: 11. Recreational Drug Use: Never Drug Type: Tobacco Use: Never Smoker Tobacco Type: Amount or Packs/day: How Many Years: Alcohol Use: No Frequency: Quant:
--- NOTE | 2019-05-03 08:01 | HPC ---
[facility] [place] [address] PAIN MANAGEMENT CONSULTATION Name: ARTHUR OSMAN Room #: [facility]#: [id number] Admission: 04/20/19 Attend Phys: Zenon Sims DO Discharge: Date of : 30 Report #: [id number] THIS REPORT FOR: //name// CC: Zenon Sims DATE OF SERVICE: 04/20/2019 CHIEF COMPLAINT: Low back pain, left lower extremity pain with paresthesias. HISTORY OF PRESENT ILLNESS: As you know, the patient is an 88-year-old female who returns today in followup visit with recurrent low back pain, left lower extremity pain with paresthesias. She returns today to undergo next in the series of lumbar epidural injections. She reports improvement in symptoms with previous injection. She has recently been hospitalized for condition that has fully resolved. She returns today having been cleared to undergo a lumbar epidural injection under fluoroscopic guidance. She denies new injury or trauma. ALLERGIES: PENICILLIN, CAFFEINE, MORPHINE, CODEINE, ASPIRIN. CURRENT MEDICATIONS: Gabapentin, topiramate, acetaminophen, levothyroxine, tramadol, valacyclovir, align, multivitamin, omeprazole, celecoxib, duloxetine. SOCIAL HISTORY: The patient denies tobacco, alcohol, IV or illicit drug use. She is living in an assisted living facility. She is unaccompanied today. IMAGING: No new imaging available. PQRS: The patient has known arthritic changes of the lumbar spine, bilateral knees, bilateral hips, bilateral hands, bilateral shoulders. No rheumatoid arthritis. She is a fall risk, but has not had a fall in last 3 months. She utilizes ambulatory devices on a daily basis. She is not on blood thinners. She reports no treatment for hypertension. She is on chronic opioids, but has a low opioid addiction potential. Pain impact score 18/70, mild interference of daily activities secondary to pain. PHYSICAL EXAMINATION: VITAL SIGNS: Blood pressure 125/68, pulse 80, respiratory rate 14 and unlabored. The patient is 97% on room air. Height 5 feet 5 inches tall, weight 139.2 pounds and BMI calculated 23.2. GENERAL: Well-developed, well-nourished, well-hydrated 88-year-old female, appearing stated age, pain is rated at 5/10. HEENT: Normocephalic, atraumatic. Pupils equal, round, reactive to light. EXTREMITIES: Show no clubbing, no cyanosis, and no edema. MUSCULOSKELETAL: Lower extremity strength is symmetrical 5/5. Deconditioning [address] [address] PAIN MANAGEMENT CONSULTATION Name: ARTHUR OSMAN Room #: [facility]#: [id number] Admission: 04/20/19 Attend Phys: Zenon Sims DO Discharge: Date of : 30 Report #: [id number] noted bilaterally. Seated straight leg raising negative. Supine straight leg raising negative. Mateus's test positive on the right. ASSESSMENT: 1. Symptomatic lumbar radiculopathy. 2. Right hip pain. 3. Displacement of lumbar intervertebral disk with radiculopathy. 4. Lumbosacral spondylosis with radiculopathy. 5. 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 6. Post-laminectomy syndrome. 7. Lumbar degeneration. 8. Chronic intractable pain. PLAN: 1. The patient returns today in followup visit to undergo next in the series of epidural injections under fluoroscopic guidance. She is placing pain today at approximately 5/10. She reported good improvement with previous epidural injection, returning today to undergo next in the series. She has been advised risks and benefits of procedure, states understood and wished to proceed. 2. No medication changes made at today's visit. The patient will continue current medical therapy as previously prescribed. 3. We will see the patient back in followup visit on an as needed basis. PROCEDURE NOTE DESCRIPTION OF PROCEDURE: Lumbar epidural steroid injection under fluoroscopic guidance. After obtaining written consent, the patient was taken back to fluoroscopy suite, placed in prone position with pillow under abdomen to decrease lumbar lordosis. Skin overlying lumbosacral area then prepped and draped in aseptic fashion. Lumbar intervertebral spaces identified by AP fluoroscopy. Skin and subcutaneous tissue overlying target site of injection anesthetized with 3 mL of 1% lidocaine. A 20-gauge 3-1/2 inch Tuohy needle advanced under fluoroscopic guidance towards the epidural space using a parasagittal approach. Epidural space identified using loss of resistance to air technique. After negative aspiration for heme or cerebrospinal fluid, 1 mL of Omnipaque injected. Lumbar epidurogram was confirmed using both AP and lateral fluoroscopy. After negative aspiration for heme or cerebrospinal fluid, 5 mL of a solution containing 2 mL 40 mg per mL, 80 mg total triamcinolone along with 3 mL lidocaine 1% injected slowly. Needle then retracted chcf, flushed with 1 mL of 1% lidocaine and then removed. Sterile bandage placed over injection site. No new motor deficits present in lower extremity following procedure. [facility] [address] [place] [address] PAIN MANAGEMENT CONSULTATION Name: ARTHUR OSMAN Room #: REG [facility]#: [id number] Admission: 04/20/19 Attend Phys: Zenon Sims DO Discharge: Date of : 30 Report #: [id number] The patient tolerated procedure well, carefully escorted to recovery room in stable condition. No apparent complications. After meeting discharge criteria, the patient discharged home. <ELECTRONICALLY SIGNED> By: Zenon Sims DO 05/03/19 0801 0828 [id number] Zenon Sims DO /nt
== END | disposition home or self-care (01) ==
LOC: PAIN 07:02
DX: M51.16 Intervertebral disc disorders with radiculopathy, lumbar region (principal); M47.27 Other spondylosis with radiculopathy, lumbosacral region; M99.73 Connective tissue and disc stenosis of intervertebral foramina of lumbar region; M96.1 Postlaminectomy syndrome, not elsewhere classified; G89.29 Other chronic pain; Z98.890 Other specified postprocedural states; Z88.0 Allergy status to penicillin; Z88.8 Allergy status to other drugs, medicaments and biological substances; Z79.899 Other long term (current) drug therapy

== ENCOUNTER 2019-09-04 05:52 | Inpatient (IN) | payer OTHER ==
[~2019-09-04] VITALS: Ht 167.6 cm; Wt 64.4 kg
[2019-09-04 05:54] VITALS: BP 124/91
[2019-09-04 07:30] LABS: ABSOLUTE NEUTROPHILS 9.1 thou/uL (1.4-8.2); BASOPHILS 0.6 % (0.0-2.0); EOSINOPHILS 0.1 % (0.0-3.0); HEMATOCRIT 40.7 % (37.0-47.0); HEMOGLOBIN 13.5 gm/dL (12.0-15.0); LYMPHOCYTES 8.1 % (24.0-44.0); MCH 32.1 pg (26.0-34.0); MCHC 33.1 g/dL (28.0-37.0); MCV 97.1 fL (80.0-100.0); MONOCYTES 9.3 % (1.0-8.0); PLATELET COUNT 182 thou/uL (150-400); POLYS 81.9 % (36.0-66.0); RBC 4.19 mil/uL (4.20-5.00); RDW 13.4 % (10.5-14.5); WBC 11.2 thou/uL (4.0-11.0)
[2019-09-04 07:40] LABS: CALCIUM 9.4 mg/dL (8.5-10.1); CREATININE 1.1 mg/dL (0.6-1.0); POTASSIUM 3.8 mmol/L (3.5-5.1)
[2019-09-04 07:45] LABS: ALBUMIN 3.6 g/dL (3.4-5.0); TOTAL BILIRUBIN 0.8 mg/dL (<0.1-1.0); TOTAL PROTEIN 6.9 g/dL (6.4-8.2)
[2019-09-04 07:47] LABS: APTT 25.7 Seconds (24.5-32.8); PROTIME 10.5 Seconds (9.3-11.4)
[2019-09-04] MEDS ORDERED: PROBIOTIC1 EAC7 PO (07:59)
[2019-09-04] MEDS ORDERED: CALCIUM 600 +1 EA12 PO (08:00)
[2019-09-04] MEDS ORDERED: CELEBREX100 MG/1 C PO (08:00)
[2019-09-04] MEDS ORDERED: DULOXETINE HCL60 MG PO (08:03)
[2019-09-04] MEDS ORDERED: GABAPENTIN100 MG PO (08:04)
[2019-09-04] MEDS ORDERED: TRAMADOL 50 MG50 MG PO (08:05)
[2019-09-04 08:14] VITALS: BP 135/66
[2019-09-04 16:58] VITALS: BP 144/70
--- NOTE | 2019-09-04 19:18 | NUR ---
ASSUMED CARE OF THE PT AT 0700. PTS DIET CHANGED TO REG, TOLERATED WELL. HIP DRESSING DRY AND INTACT. VS STABLE. PT ON 2.0 L O2 NC. BRUISING ON R ARM AND ELBOW. L AC DRY AND INTACT. FALL PRECAUTIONS IN PLACE, BED IN LOWEST POSITION AND CALL LIGHT WITHIN REACH. WILL CONTINUE TO MONITOR THE PT.
[2019-09-04 21:30] VITALS: BP 139/65
[2019-09-05 04:15] VITALS: BP 111/50
--- NOTE | 2019-09-05 05:17 | NUR ---
Pt. rested quietly during the night when checked on during frequent rounds. She did c/o right hip pain and po pain med given (see emar) with some relief noted. Dressing to right hip is dry and intact. Ice packs applied. Bed alarm is on.
[2019-09-05 05:31] LABS: HEMATOCRIT 37.8 % (37.0-47.0); HEMOGLOBIN 12.7 gm/dL (12.0-15.0); MCH 32.8 pg (26.0-34.0); MCHC 33.5 g/dL (28.0-37.0); MCV 97.8 fL (80.0-100.0); RBC 3.86 mil/uL (4.20-5.00); RDW 13.5 % (10.5-14.5); WBC 10.8 thou/uL (4.0-11.0)
[2019-09-05 05:43] LABS: CALCIUM 8.3 mg/dL (8.5-10.1); CREATININE 1.1 mg/dL (0.6-1.0)
--- NOTE | 2019-09-05 06:53 | O ---
[address] [address] OPERATIVE REPORT Name: ARTHUR OSMAN Room #: 441-P ADM IN M.R.#: [id number] Admission: 09/04/19 Attend Phys: Larisa Holly MD Discharge: Date of : 30 Report #: [id number] THIS REPORT FOR: cc: Zenon Cooley James A. DO McCabe, Michael P. MD ~ CC: Larisa Hayden DATE OF SERVICE: 09/04/2019 SERVICE: Orthopedics. FACILITY: [facility]. SURGEON: Henrry Hayden MD WARDROBE MANAGER: Katlyn Benson NP. INDICATION FOR WARDROBE MANAGER: Assistance with hardware placement. PREOPERATIVE DIAGNOSIS: Valgus impacted right hip femoral neck fracture. POSTOPERATIVE DIAGNOSIS: Valgus impacted right hip femoral neck fracture. PROCEDURE: Closed reduction and percutaneous pinning, right hip femoral neck fracture. COMPLICATIONS: None. DRAINS: None. SPECIMENS: None. ANESTHESIA: General. ESTIMATED BLOOD LOSS: 20 mL. IMPLANTS: Synthes cannulated screws x 3 (85 mm with one washer. HISTORY: The patient is an 88-year-old female who fell and sustained a valgus impacted right femoral neck fracture. She is status post fall with left hip hemiarthroplasty almost 2 years ago. She had recovered from this and unfortunately sustained a fall earlier today. She was indicated for surgical treatment. Risks, benefits, alternatives, and indication of surgery discussed [address] [address] OPERATIVE REPORT Name: ARTHUR OSMAN Room #: [facility] IN M.R.#: [id number] Admission: 09/04/19 Attend Phys: Larisa Holly MD Discharge: Date of : 30 Report #: [id number] with her and her mother in detail. They gave full informed consent and wished to move forward with surgery. Risks include but not limited to pain, bleeding, infection, injury to nerves or blood vessels, malunion, nonunion, need for further surgery including conversion to hemiarthroplasty, stiffness, need to walk with assistive device as well as complications related to anesthesia such as stroke, heart attack, pulmonary complications, thromboembolic disease and . Despite these risks, she wished to proceed. PROCEDURE IN DETAIL: After right lower extremity was correctly identified in preoperative holding as operative extremity, the patient was taken to the operating room where general anesthesia was induced without complication. She was transferred to the operating table, padded appropriately. Prophylactic antibiotics were administered at appropriate time. C-arm was used to assess the reduction, which was a valgus impacted fracture that had not displaced since positioning. We had established AP and lateral views and then the right hip was prepped and draped in standard sterile fashion. Time-out procedure was performed. C-arm was brought in. Under C-arm fluoroscopy, the starting point was identified. A 1 inch incision was made over the lateral aspect of the femur. Dissection was taken down to the femur and the first pin was placed in the central inferior location along the inferior cortex. The second guide pin was then placed proximally posteriorly getting good purchase along the posterior cortex and then the third one was placed anterior superior. These were placed off plane to allow for good spread filling the neck appropriately. The lateral cortex was then drilled. I placed the inferior screw first with a washer. All screws were measured 85 with a short thread. This was a weaker screw, but did have a good position along the inferior cortex specifically. The posterior screw was then placed and this had improved purchase and then the anterior screw was placed last. This was excellent bony purchase. The first two were then tightened, the fracture was well maintained. There was compression and there was a purchase on each of the 3 screws at this point. The wound was then copiously irrigated after final x-rays were taken and the fascia was closed with 0 Vicryl suture. Skin was closed with 2-0 Vicryl followed by skin jhonny. Sterile dressing was applied. The patient was awakened from anesthesia and taken to recovery room in stable condition. No complications. All counts were correct. <ELECTRONICALLY SIGNED> By: Henrry Hayden MD 09/05/19 0653 1349 1402 Henrry Hayden MD /nt
[2019-09-05 08:50] VITALS: BP 115/55
--- NOTE | 2019-09-05 15:43 | NUR ---
PT ADMITTED RELATED TO FALL WITH R HIP FX, CLOSED REDUCTION PERCUTANEOUS PIN 09/04. CM REVIEWED CHART AND SPOKE WITH CARE TEAM. CM MET WITH PT AT BEDSIDE THIS DAY. PT INDICATED SHE LIVES AT [facility]. PT INDICATED SHE WAS[place]'T SU[place]. CM CALLED PT'S DTR HEIKE ROGERS AND LEFT VM. CARE TEAM ARE INDICATING THAT PT WILL NEED POST ACUTE CARE STAY UPON DC. CM TO FOLLOW INDICATED WITH DC PLANNING.
[2019-09-05 17:41] VITALS: BP 102/44
--- NOTE | 2019-09-05 18:55 | NUR ---
PT ALERT AND ORIENTED TIMES FOUR. VSS. PT C/O PAIN PRN MEDS GIVEN WITH GOOD RELEIF. PT UP TO CHAIR TODAY. PT WORKED WELL WITH PT/OT TODAY. PT TOLERATES MEDS AND MEALS. FAMILY AT BEDSIDE. PT SLOWLY PROGRESSING TOWRADS POC GOALS.
[2019-09-05 23:17] VITALS: BP 114/62
[2019-09-06 04:00] VITALS: BP 121/61
[2019-09-06 06:31] LABS: HEMATOCRIT 35.7 % (37.0-47.0); HEMOGLOBIN 11.8 gm/dL (12.0-15.0); MCH 32.4 pg (26.0-34.0); MCHC 33.2 g/dL (28.0-37.0); MCV 97.8 fL (80.0-100.0); RBC 3.65 mil/uL (4.20-5.00); RDW 13.8 % (10.5-14.5); WBC 8.9 thou/uL (4.0-11.0)
[2019-09-06 07:22] VITALS: BP 128/62
--- NOTE | 2019-09-06 07:53 | NUR ---
Assumed pt care @1915. pt a&ox2/3. pt can be incont and cont of urine. pain controlled with pain regimen. no s/s of distress. reports off to day shift nurse
--- NOTE | 2019-09-06 11:06 | NUR ---
Assumed care of pt at 0700. Dressing on right hip c/d/i. On 6LO2. Denies pain. Walked to chair with physical therapy. Call light within reach. Fall precautions in place. Will continue to monitor.
--- NOTE | 2019-09-06 14:07 | NUR ---
CM SPOKE WITH PT'S DTR HEIKE REESE AM. SHE INDICATED THAT PT IS IN [place] AT [facility] AND THAT SHE HAD BEEN SKILLED AT [facility] IN THE PAST. SHE INDICATED THAT REFERRAL COULD BE SENT TO [facility] FOR POSSIBLE ADMISSION. REFERRAL SENT. CM TO FOLLOW INDICATED WITH DC PLANNING.
[2019-09-06 15:18] VITALS: BP 148/61
--- NOTE | 2019-09-06 16:41 | NUR ---
FAXED REFERRAL TO [facility] RECEIVED CONFIRMATION AND LEFT MSG WITH ANTIONETTE IN ADM OF POSS DC TOMORROW. DP TO FOLLOW.
--- NOTE | 2019-09-06 18:57 | NUR ---
NURSE CAME FROM , NURSE DANIEL GAVE REPORT. PT IS AOX4, VSS, NO C/O PAIN AT THIS TIME. FALL PRECAUTIONS IN PLACE. CALL LIGHT/PERSONAL ITEMS IN REACH. SHIFT CHANGE TRANSFER. WILL CONTINUE TO MONITOR.
[2019-09-06 20:04] VITALS: BP 112/56
[2019-09-06 21:00] VITALS: BP 112/56
--- NOTE | 2019-09-07 04:31 | NUR ---
Assumed pt care at 1900. Pt A/OX3 with forgetfulness noted but able to make needs known. C/o right hip pain medicated per EMAR with relief reported. Up with moderate assist RW/GB to BSC. Incontinent/continent of bladder. Dressing in place on right hip C/D/I. Bruising on RFA, skin tears with steri-strips in place. IVF infusing via LAC w/o problems. Fall precautions in place. RT notified regarding order to titrate 0xygen and check ABGs. Pt O2 @ 2.5 L/NC at this time sats @ 93%. Will continue to monitor pt.
[2019-09-07 05:44] LABS: HEMOGLOBIN 11.5 gm/dL (12.0-15.0); MCH 32.5 pg (26.0-34.0); MCV 98.4 fL (80.0-100.0); RBC 3.56 mil/uL (4.20-5.00); RDW 13.5 % (10.5-14.5); WBC 8.2 thou/uL (4.0-11.0)
[2019-09-07 08:57] VITALS: BP 132/88
[2019-09-07 12:15] VITALS: BP 132/88
--- NOTE | 2019-09-07 13:55 | NUR ---
SW reviewed chart and spoke with nursing and attending physician. Pt was [facility] from and is progressing towards goals for discharge. Discharge to SNF is anticipated for tomorrow. [facility] is able to accept pt. SW met with pt and dtr at bedside to discuss discharge plan. Both are aware and agreeable with plan. Pt's dtr requests AM discharge if possible. SW is following to assist as needed with discharge planning.
[2019-09-07 14:17] VITALS: BP 132/88
[2019-09-07 17:11] VITALS: BP 142/84
--- NOTE | 2019-09-07 18:07 | NUR ---
PT IS AOX3, CAN BECOME CONFUSED OR FORGETFUL. PT IS ON 02 2.5L PER NC. PT HAS IV ON RIGHT AC WITH FLUIDS RUNNING. PT IS UP WITH STANDBY ASSIST, GB, AND WALKER. FALL PRECAUTIONS IN PLACE. CALL LIGHT/PERSONAL ITEMS IN REACH. WILL CONTINUE TO MONITOR.
[2019-09-07 20:04] VITALS: BP 141/69
[2019-09-07 20:45] VITALS: BP 141/69
--- NOTE | 2019-09-08 04:28 | NUR ---
Assumed pt care at 1900. Pt is A/OX4, with periods of forgetfulness. VSS. Up with AX1, RW/GB, WBAT to RLE. C/o pain 11/26,medicated per EMAR with relief reported. Voiding per BSC. IVF infusing via LAC IV w/o problems. Fall precautions in place,pt resting quietly w/o any distress at this time O2 @2L/NC. Will continue to monitor pt.
[2019-09-08 07:16] VITALS: BP 164/78
[2019-09-08] MEDS ORDERED: XARELTO10 MG PO (09:59)
[2019-09-08] MEDS ORDERED: COLACE 100 MG100 MG PO (10:01)
--- NOTE | 2019-09-08 10:22 | NUR ---
DISCHARGE NOTE: MARIAN reviewed chart and spoke with nursing and attending physician. Pt is medically stable for discharge to [facility] today. Pt's dtr requesting early discharge. [facility] is able to pickler helper pt at 1500 this afternoon. A pt will need to be discharged, in order for pt to be admitted. MARIAN left voice message for pt's dtr, Jenny, to provide update. convention planner to fax orders/summary when available. MARIAN is following to finalize discharge.
--- NOTE | 2019-09-08 13:32 | NUR ---
DISCHARGE ORDERS COMPLETED AND FAXED TO [facility] ADMISSIONS. VERIFIED ORDERS RECEIVED. TRANSPORTATION ARRANGED FOR 1400 HOURS. CHART COPY COMPLETED PER UNIT SERETARY. DAUGHTER NOTIFIED AT BEDSIDE. UNIT RN NOTIFIED, CONTACT NUMBER FOR REPORT PROVIDED.
--- NOTE | 2019-09-08 14:24 | NUR ---
ASSUMED PATIENT CARE AT 0700. PATIENT IS AOX4 BUT DOES HAVE SOME CONFUSION. PATIENT WAS ABLE TO AMBULATE OUT OF HER ROOM AND DOWN THE FABIAN ABOUT 20 FEET BEFORE NEEDING TO REST. PATIENT IS ABLE TO TOLERATE SOME WEIGHT ON THE RIGHT SIDE. PATIENT WAS C/O NOT BEING ABLE TO HAVE A BM BUT AFTER THE SUPPOSITORY SHE WAS ABLE TO GO. DOCTOR REMOVED THE DRESSING ON THE INCISION ON THE RIGHT LEG, MODERATE DRAINAGE, AND NURSE APPLIED VASELINE GAUZE AND BORDER FOAM OVER PER THE DOCTORS ORDER. FALL PRECAUTIONS IN PLACE, CALL LIGHT WITHIN REACH, AND DAUGHTER AT BESIDE MOST OF THE DAY. PATIENT WAS DC TO [facility], REPORT GIVEN TO JASPER.
--- NOTE | 2019-09-23 15:26 | EKG ---
[facility] [place] [address] ELECTROCARDIOGRAM REPORT Name: ARTHUR OSMAN Room #: 406-P [facility] IN M.R.#: [id number] Admission: 09/04/19 Attend Phys: Larisa Holly MD Discharge: 09/08/19 Date of : 30 Report #: [id number] THIS REPORT FOR: cc: Zenon Cooley James A. DO Couchonnal, Luis F. MD ~ THIS REPORT FOR: //name// [facility] ED Test Date: 2019-09-04 Test Time: 07:08:39 Pat Name: ARTHUR OSMAN Department: Room: Gender: F Shop Fitter: SHELIA : 1930 Requested By: Maurice Senior Order Number: [id number] MD: George Rob Measurements Intervals [place] Rate: 69 P: 52 VT: 190 QRS: -38 QRSD: 106 T: 61 QT: 441 QTc: 473 Interpretive Statements Sinus rhythm Left ventricular hypertrophy Anterior infarct, old Baseline wander in lead(s) II,III,aVF Compared to ECG 04/03/2019 21:47:25 No significant changes Electronically Signed On 09-04-2019 8:54:14 [employer] INTERN by George Rob [email or web address] <ELECTRONICALLY SIGNED> By: George Rob MD 09/04/19 0854 7 7 George Rob MD /EPI
== END 2019-09-08 14:30 | DRG 480 ==
LOC: ER 05:52 → 4N 09:06 → EROBS 09:06 → 4S 09:06 → TBA 10:55 → 4S 16:06 → 4N 09-06 17:47
PROVIDERS: Emergency Medicine; Orthopaedic Surgery Sports Medicine; ADMIT Hospitalist
PROC: 0QS634Z Reposition Right Upper Femur with Internal Fixation Device, Percutaneous Approach (ICD-10-PCS; principal; 2019-09-04)
DX: S72.001A Fracture of unspecified part of neck of right femur, initial encounter for closed fracture (principal); G93.41 Metabolic encephalopathy; J96.21 Acute and chronic respiratory failure with hypoxia; D62 Acute posthemorrhagic anemia; W18.39XA Other fall on same level, initial encounter; E03.9 Hypothyroidism, unspecified; M79.7 Fibromyalgia; F32.9 Major depressive disorder, single episode, unspecified; F41.9 Anxiety disorder, unspecified; G62.9 Polyneuropathy, unspecified; M19.90 Unspecified osteoarthritis, unspecified site; M21.051 Valgus deformity, not elsewhere classified, right hip; Z96.642 Presence of left artificial hip joint; M54.9 Dorsalgia, unspecified; G43.909 Migraine, unspecified, not intractable, without status migrainosus; K52.839 Microscopic colitis, unspecified; K59.00 Constipation, unspecified; N18.3 Chronic kidney disease, stage 3 (moderate); I12.9 Hypertensive chronic kidney disease with stage 1 through stage 4 chronic kidney disease, or unspecified chronic kidney disease; Z79.2 Long term (current) use of antibiotics; Y93.89 Activity, other specified; Y92.89 Other specified places as the place of occurrence of the external cause; Y99.8 Other external cause status; Z90.49 Acquired absence of other specified parts of digestive tract; Z79.899 Other long term (current) drug therapy; Z88.5 Allergy status to narcotic agent; Z88.0 Allergy status to penicillin; Z88.8 Allergy status to other drugs, medicaments and biological substances
CPT/HCPCS: 10091; 10195; 50010; 50101; 50386; 51412; 51538; 52304; 53400; 53402; 56524; 57092; 70005